=== PATIENT | male | born 1945 | race Caucasian/White ===

== ENCOUNTER 2021-01-06 15:31 | Emergency (ER) | payer OTHER | END 2021-01-06 18:38 | disposition home or self-care (01) | LOC: ER 15:31 | DX: J18.9 Pneumonia, unspecified organism (principal); N18.9 Chronic kidney disease, unspecified; I10 Essential (primary) hypertension; E11.9 Type 2 diabetes mellitus without complications; E03.9 Hypothyroidism, unspecified ==

== ENCOUNTER 2022-11-20 16:40 | Inpatient (IN) | payer OTHER ==
[~2022-11-20] VITALS: Ht 175.3 cm; Wt 90.7 kg
[~2022-11-20 16:40] MED LIST: AMOCLA875 PO; AZIT250 PO
[2022-11-20 18:31] LABS: Albumin, Blood 3.4 g/dL (3.4-5.0); Albumin/Globulin Ratio 0.9 (0.8-1.8); Bilirubin, Total 0.9 mg/dL (0.1-1.0); Bun/Creatinine Ratio 17.9 (12.0-20.0); Calcium, Blood 11.6 mg/dL (8.5-10.1); Creatinine, Blood 1.79 mg/dL (0.60-1.20); Globulin, Blood 3.9 g/dL (2.2-4.0); Potassium, Blood 4.2 mmol/L (3.5-5.5); Total Protein, Blood 7.3 g/dL (6.4-8.2)
[2022-11-20 18:43] LABS: BASOPHILS ABSOLUTE AUTO 0.07 K/mm3 (0.00-0.23); BASOPHILS PERCENT AUTO 1 % (0-2); EOSINOPHILS ABSOLUTE AUTO 0.16 K/mm3 (0.00-0.68); EOSINOPHILS PERCENT AUTO 1 % (0-6); Hematocrit 50.1 % (37.0-53.0); Hemoglobin 16.7 g/dL (13.5-17.5); IMMATURE GRAN ABSOLUTE AUTO 0.04 K/mm3 (0.00-0.10); IMMATURE GRAN PERCENT AUTO 0 % (0-1); LYMPHOCYTES ABSOLUTE AUTO 1.76 K/mm3 (0.84-5.20); LYMPHOCYTES PERCENT AUTO 14 % (21-46); MONOCYTES ABSOLUTE AUTO 1.21 K/mm3 (0.16-1.47); MONOCYTES PERCENT AUTO 10 % (4-13); Mean Corpuscular HGB 29.8 pg (26.0-34.0); Mean Corpuscular HGB Conc 33.3 g/dL (31.5-36.5); Mean Corpuscular Volume 89 fL (80-100); NEUTROPHILS ABSOLUTE AUTO 9.45 K/mm3 (1.96-9.15); NEUTROPHILS PERCENT AUTO 74 % (41-73); RDW Coefficient Variation 13.1 % (11.7-14.2); RDW Standard Deviation 42.7 fL (35.1-46.3); Red Blood Cell Count 5.61 M/mm3 (4.30-5.90); Thyroid Stimulating Hormone 6.88 uIU/mL (0.360-4.800); White Blood Cell Count 12.69 K/mm3 (4.00-11.30)
[2022-11-20 18:53] LABS: Mean Platelet Volume 9.7 fL (9.1-12.4); Platelet Count 266 K/mm3 (150-400)
[2022-11-20 19:55] LABS: Source, Urine Clean Catch
[2022-11-20 20:01] LABS: Bilirubin, Urine Neg (Neg); Blood, Urine 3+ (Neg); Glucose Qualitative, Urine Neg (Neg); Ketones, Urine 2+ (Neg); Leukocyte Esterase, Urine 3+ (Neg); Nitrite, Urine Pos (Neg); Protein, Urine 4+ (Neg); Urobilinogen, Urine NORM (Normal)
[2022-11-20 20:08] LABS: Appearance, Urine Cloudy (Clear); Color, Urine Yellow (P-Yellow)
[2022-11-20 20:09] LABS: Bacteria Many /hpf; Squamous Epithelial Cells Few /hpf (Few); White Blood Cells, Urine TNTC /hpf (0-5)
[2022-11-20 20:10] LABS: Amorphous Light (0-Heavy)
[2022-11-21] MEDS ORDERED: ACET500 PO (02:57)
[2022-11-21] MEDS ORDERED: Aspir 8181 MG PO (02:58)
[2022-11-21] MEDS ORDERED: ATOR40TA PO (02:58)
[2022-11-21] MEDS ORDERED: AMLO10 PO (02:58)
[2022-11-21] MEDS ORDERED: ALEN70 PO (02:58)
[2022-11-21] MEDS ORDERED: THERA-D2000 UNIT PO (02:59)
[2022-11-21] MEDS ORDERED: BASAGLAR K100 UNIT/1 SC (02:59)
[2022-11-21] MEDS ORDERED: TAMS.4ER PO (03:00)
[2022-11-21] MEDS ORDERED: LISI5 PO (03:00)
[2022-11-21] MEDS ORDERED: THYROID DESICCATED PO (03:01)
[2022-11-21 03:16] LABS: U Amphetamine Screen Not Detected; U Barbituate Screen Not Detected; U Benzodiazapine Screen Not Detected; U Buprenorphine Screen Not Detected; U Cannabinoids Screen Not Detected; U Cocaine Screen Not Detected; U Methadone Screen Not Detected; U Methamphetamine Screen Not Detected; U Opiates Screen Not Detected; U Oxycodone Screen Not Detected; U Phencyclidine Screen Not Detected; U Propoxyphene Screen Not Detected
--- NOTE | 2022-11-21 05:54 | NUR ---
REINFORCING METAL WORKER SUMMARY/NEW ADMIT PT A/OX TO SELF ONLY AT THE TIME OF ADMIT; THIS MORNING HE COULD TELL ME HE WAS IN THE HOSPITAL. PT DOES NOT KNOW WHY HE IS HERE. UNABLE TO USE CALL LIGHT OR MAKE NEEDS KNOWN. IMPULUSIVE ATTEMPTS OOB. URINARY FREQUENCY/URGENCY WITH LITTLE OUT PUT. BLADDER SCAN SHOWING 15MLS. HX OF BPH WITH OBSTRUCTION. PT STANDING AT BEDSIDE TO URNIATE WITH ASSISTANCE AND A URINAL. URINE SAMPLE SENT FOR TOXICOLOGY--RESULTS NEGATIVE. PT IN ROOM WITH VIDEO MONITORING.
[2022-11-21 06:14] LABS: BASOPHILS ABSOLUTE AUTO 0.07 K/mm3 (0.00-0.23); BASOPHILS PERCENT AUTO 1 % (0-2); EOSINOPHILS ABSOLUTE AUTO 0.23 K/mm3 (0.00-0.68); EOSINOPHILS PERCENT AUTO 2 % (0-6); Hematocrit 46.2 % (37.0-53.0); Hemoglobin 15.7 g/dL (13.5-17.5); IMMATURE GRAN ABSOLUTE AUTO 0.04 K/mm3 (0.00-0.10); IMMATURE GRAN PERCENT AUTO 0 % (0-1); LYMPHOCYTES ABSOLUTE AUTO 1.85 K/mm3 (0.84-5.20); LYMPHOCYTES PERCENT AUTO 15 % (21-46); MONOCYTES ABSOLUTE AUTO 1.18 K/mm3 (0.16-1.47); MONOCYTES PERCENT AUTO 10 % (4-13); Mean Corpuscular HGB 29.7 pg (26.0-34.0); Mean Corpuscular Volume 88 fL (80-100); Mean Platelet Volume 9.1 fL (9.1-12.4); NEUTROPHILS ABSOLUTE AUTO 9.03 K/mm3 (1.96-9.15); NEUTROPHILS PERCENT AUTO 73 % (41-73); Platelet Count 303 K/mm3 (150-400); RDW Coefficient Variation 13.2 % (11.7-14.2); RDW Standard Deviation 42.2 fL (35.1-46.3); Red Blood Cell Count 5.28 M/mm3 (4.30-5.90)
[2022-11-21 06:42] LABS: Free Thyroxine 0.8 ng/dL (0.70-1.60)
[2022-11-21 06:44] LABS: Triiodothyronine, Free 2.01 pg/mL (2.18-3.98)
[2022-11-21 06:45] LABS: Albumin/Globulin Ratio 0.9 (0.8-1.8); Bilirubin, Total 0.8 mg/dL (0.1-1.0); Bun/Creatinine Ratio 19.4 (12.0-20.0); Calcium, Blood 10.6 mg/dL (8.5-10.1); Creatinine, Blood 1.65 mg/dL (0.60-1.20); Globulin, Blood 3.5 g/dL (2.2-4.0); Potassium, Blood 4.2 mmol/L (3.5-5.5); Total Protein, Blood 6.5 g/dL (6.4-8.2)
[2022-11-21 07:33] VITALS: BP 157/68
[2022-11-21] MEDS ORDERED: CINA30 PO (11:20)
[2022-11-21] MEDS ORDERED: JARDIANCE25 MG PO (11:20)
[2022-11-21 15:37] VITALS: BP 136/69
--- NOTE | 2022-11-21 17:36 | NUR ---
SHIFT SUMMARY: NO ACUTE EVENTS. NO RESTRAINTS USED DURING THIS SHIFT. A&O X 2, KNOWS , RECOGNIZED , BUT REMAINS SLOW TO RESPOND AND A BIT CONFUSED. HAS VIRTUAL BUSINESS PROCESS ASSOCIATE IN PLACE. GOOD APPETITE. GETTING UP TO BR WITH 1 PERSON ASSIST AND FWW, GAIT UNSTEADY. PHYSICAL THERAPY DID EVAL TODAY. DENIED PAIN. STATED HE IS A CURRENT SMOKER BUT DECLINED OFFERED NICOTINE PATCH.
[2022-11-21 19:52] VITALS: BP 140/63
--- NOTE | 2022-11-21 20:15 | NUR ---
NURSE NOTE CALLED DR ZEPEDA ABOUT CBG 354. DR ZEPEDA WANTED TO NOT GIVE THE SLIDING SCALE AND TO GIVE THE NEW ORDER OF 35 LONG ACTING INSULIN. RECHECK CBG DURING NEXT VITAL CHECK
--- NOTE | 2022-11-22 03:58 | NUR ---
SHIFT SUMMARY PATIENT IS ALERT AND ORIENTED X3. PATIENT HAS BEEN PLEASENT AND COOPERATIVE ALL SHIFT. PATIENT HAS HAD NO ACUTE EVENTS THIS SHIFT. VITAL SIGNS REVIEWED. PATIENT HAS HAD LR INFUSING AT 125/HR THIS SHIFT. PATIENT HAS HAD FREQUENT SMALL URINATIONS USING URINAL WITH ASSISTANCE THIS SHIFT. PATIENT HAS NOT COMPLAINED OF PAIN, NAUSEA, SOB OR VOMITTING THIS SHIFT. BED IN LOCKED AND LOWEST POSITION. CALL LIGHT IN PLACE. CAMERA MONITORING IN PLACE. WILL MONITOR UNTIL SHIFT CHANGE.
[2022-11-22 04:32] LABS: BASOPHILS ABSOLUTE AUTO 0.05 K/mm3 (0.00-0.23); BASOPHILS PERCENT AUTO 1 % (0-2); EOSINOPHILS ABSOLUTE AUTO 0.42 K/mm3 (0.00-0.68); EOSINOPHILS PERCENT AUTO 5 % (0-6); Hematocrit 41.8 % (37.0-53.0); Hemoglobin 14.1 g/dL (13.5-17.5); IMMATURE GRAN ABSOLUTE AUTO 0.02 K/mm3 (0.00-0.10); IMMATURE GRAN PERCENT AUTO 0 % (0-1); LYMPHOCYTES ABSOLUTE AUTO 1.85 K/mm3 (0.84-5.20); LYMPHOCYTES PERCENT AUTO 20 % (21-46); MONOCYTES ABSOLUTE AUTO 1.15 K/mm3 (0.16-1.47); MONOCYTES PERCENT AUTO 13 % (4-13); Mean Corpuscular HGB 29.6 pg (26.0-34.0); Mean Corpuscular HGB Conc 33.7 g/dL (31.5-36.5); Mean Corpuscular Volume 88 fL (80-100); Mean Platelet Volume 9.6 fL (9.1-12.4); NEUTROPHILS ABSOLUTE AUTO 5.58 K/mm3 (1.96-9.15); NEUTROPHILS PERCENT AUTO 62 % (41-73); Platelet Count 284 K/mm3 (150-400); RDW Coefficient Variation 12.9 % (11.7-14.2); Red Blood Cell Count 4.77 M/mm3 (4.30-5.90); White Blood Cell Count 9.07 K/mm3 (4.00-11.30)
[2022-11-22 04:59] LABS: Bun/Creatinine Ratio 19.3 (12.0-20.0); Calcium, Blood 9.9 mg/dL (8.5-10.1); Creatinine, Blood 1.4 mg/dL (0.60-1.20); Potassium, Blood 3.7 mmol/L (3.5-5.5)
[2022-11-22 07:29] VITALS: BP 129/76
[2022-11-22 09:58] VITALS: BP 141/65
[2022-11-22] MEDS ORDERED: CEPH500 PO (12:50)
[2022-11-22] MEDS ORDERED: SENN187 PO (12:51)
[2022-11-22] MEDS ORDERED: HUMALOG JU100 UNIT/2 SC (12:51)
[2022-11-22] MEDS ORDERED: VISBIOME 112.51 EACH PO (12:52)
--- NOTE | 2022-11-22 13:50 | NUR ---
PT HAD AN EPISODE OF CONFUSION. UNABLE TO STATE , YEAR, LOCATION, SITUATION OR LAST NAME. EXPRESSED CONCERN TO RN COVERING MY BREAK. MD NOTIFIED AND CAME TO BEDSIDE. PT WAS MORE AWARE AND ABLE TO STATE NAME, , AND SITUATION. MD OK TO DISCHARGE
== END 2022-11-22 14:22 | disposition home health service (06) | DRG 690 ==
LOC: ER 16:40 → MEDS 16:42 → ENPENDDIS 11-22 13:17 → MEDS 11-22 14:22
PROVIDERS: Emergency Medicine; Family Medicine; ADMIT Student in an Organized Health Care Education/Training Program
DX: N39.0 Urinary tract infection, site not specified (principal); N17.9 Acute kidney failure, unspecified; G93.49 Other encephalopathy; E03.9 Hypothyroidism, unspecified; F32.9 Major depressive disorder, single episode, unspecified; B96.1 Klebsiella pneumoniae [K. pneumoniae] as the cause of diseases classified elsewhere; I12.9 Hypertensive chronic kidney disease with stage 1 through stage 4 chronic kidney disease, or unspecified chronic kidney disease; N18.30 Chronic kidney disease, stage 3 unspecified; M85.80 Other specified disorders of bone density and structure, unspecified site; E11.22 Type 2 diabetes mellitus with diabetic chronic kidney disease; N40.0 Benign prostatic hyperplasia without lower urinary tract symptoms; F17.210 Nicotine dependence, cigarettes, uncomplicated; Z90.5 Acquired absence of kidney; Z85.528 Personal history of other malignant neoplasm of kidney
CPT/HCPCS: 36415; 70450; 80048; 80053; 81001; 82947; 83735; 84439; 84443; 84481; 85025; 87077; 87086; 87186; 93005; 93010; 96361; 96365; 96372; 96376; 97116; 97162; 97166; 97530; 99285-25; A9270; G0378; J0696; J1650; J1815; J7030; J7120

== ENCOUNTER 2022-12-28 13:34 | Inpatient (IN) | payer OTHER ==
[~2022-12-28] VITALS: Ht 182.9 cm; Wt 88.0 kg
[~2022-12-28 13:34] MED LIST changes: +ACET500 PO; +ALEN70 PO; +AMLO10 PO; +ATOR40TA PO; +Aspir 8181 MG PO; +BASAGLAR K100 UNIT/1 SC; +CEPH500 PO; +CINA30 PO; +HUMALOG JU100 UNIT/2 SC; +JARDIANCE25 MG PO; +LISI5 PO; +SENN187 PO; +TAMS.4ER PO; +THERA-D2000 UNIT PO; +THYROID DESICCATED PO; +VISBIOME 112.51 EACH PO
[2022-12-28 14:51] LABS: Albumin/Globulin Ratio 0.7 (0.8-1.8); Bilirubin, Total 0.9 mg/dL (0.1-1.0); Bun/Creatinine Ratio 39.8 (12.0-20.0); Calcium, Blood 10.3 mg/dL (8.5-10.1); Creatinine, Blood 1.86 mg/dL (0.60-1.20); Globulin, Blood 4.3 g/dL (2.2-4.0); Potassium, Blood 4.3 mmol/L (3.5-5.5); Total Protein, Blood 7.3 g/dL (6.4-8.2)
[2022-12-28 15:06] LABS: BASOPHILS ABSOLUTE AUTO 0.07 K/mm3 (0.00-0.23); BASOPHILS PERCENT AUTO 1 % (0-2); EOSINOPHILS ABSOLUTE AUTO 0.37 K/mm3 (0.00-0.68); EOSINOPHILS PERCENT AUTO 3 % (0-6); Hematocrit 48.2 % (37.0-53.0); Hemoglobin 16.8 g/dL (13.5-17.5); IMMATURE GRAN ABSOLUTE AUTO 0.12 K/mm3 (0.00-0.10); IMMATURE GRAN PERCENT AUTO 1 % (0-1); LYMPHOCYTES ABSOLUTE AUTO 1.48 K/mm3 (0.84-5.20); LYMPHOCYTES PERCENT AUTO 12 % (21-46); MONOCYTES ABSOLUTE AUTO 1.19 K/mm3 (0.16-1.47); MONOCYTES PERCENT AUTO 10 % (4-13); Mean Corpuscular HGB 29.4 pg (26.0-34.0); Mean Corpuscular HGB Conc 34.9 g/dL (31.5-36.5); Mean Corpuscular Volume 84 fL (80-100); Mean Platelet Volume 9.8 fL (9.1-12.4); NEUTROPHILS ABSOLUTE AUTO 9.23 K/mm3 (1.96-9.15); NEUTROPHILS PERCENT AUTO 74 % (41-73); Platelet Count 377 K/mm3 (150-400); RDW Coefficient Variation 12.4 % (11.7-14.2); Red Blood Cell Count 5.72 M/mm3 (4.30-5.90); White Blood Cell Count 12.46 K/mm3 (4.00-11.30)
[2022-12-28 15:32] LABS: Source, Urine Voided
[2022-12-28 15:37] LABS: Appearance, Urine Clear (Clear); Bilirubin, Urine Neg (Neg); Blood, Urine Neg (Neg); Color, Urine Yellow (P-Yellow); Glucose Qualitative, Urine 4+ (Neg); Ketones, Urine Neg (Neg); Leukocyte Esterase, Urine Neg (Neg); Nitrite, Urine Neg (Neg); Protein, Urine 2+ (Neg); Urobilinogen, Urine NORM (Normal)
[2022-12-28 16:13] LABS: Base Excess Venous 2.7 mmol/L; Bicarbonate Venous 24.4 mmol/L (24.0-30.0); PCO2 Venous 56.9 mmHg (38-42); pH Blood Venous 7.31 (7.34-7.37)
[2022-12-28 16:23] LABS: White Blood Cells, Urine 0-2 /hpf (0-5)
[2022-12-28 16:24] LABS: Amorphous Light (0-Heavy); Bacteria Few /hpf; Squamous Epithelial Cells Few /hpf (Few)
[2022-12-28 19:15] VITALS: BP 117/67
--- NOTE | 2022-12-28 19:21 | NUR ---
TRANSFER- PT ARRIVED FROM ER AT 1908 IN STABLE CONDITION AFTER RECEIVING REPORT FROM GRAPHIC DESIGNER.
[2022-12-29 02:24] VITALS: BP 133/72
--- NOTE | 2022-12-29 05:42 | NUR ---
SUMMARY: PT A/OX3-4, IS PLEASANT AND COOPERATIVE W/CARE AND SPECIFIES NEEDS WHEN STAFF IN ROOM. HE'S INDEPENDENT AND SELF CARING AT BASELINE BUT ADMITS TO DIFFICULTY W/ADL'S RECENTLY R/T WEAKNESS AND "FEELING CRUMMY". HE'S UNAWARE OF SOME LIMITATIONS AT PRESENT W/TENDENCY TO OVERESTIMATE ABILITIES, BED ALARM ON FOR FALL RISK/SAFETY. HE ARRIVED W/POOR HYGIENE AND SOILED BRIEF FROM HOME SO PARTIAL BED BATH AND THOROUGH KARINE CARE ATTENDED TO. URGE INCONTINENCE NOTED AND PT STANDS AT EOB TO USE URINAL W/ASSIST FOR FREQ SM.VOIDS, PULLUPS CHANGED PRN. NS INFUSING AT 125 ML/HR FOR RAHUL ON CKD AND LACTIC ACID IMPROVED TO 1.4. TYLENOL RECIEVED FOR TOLERABLE RELIEF OF "ALL OVER" PAIN BUT HE CONT'D TO BE RESTLESS W/DIFFICULTY SLEEPING T/O NOCTE. HALDOL 2.5MG IV PRN PROVIDED BUT MINIMAL AFFECT WAS OBSERVED. NO ACUTE CHANGES, VSS/AFEBRILE. IGNITION RISK EDUCATION AND ASSESSMENT COMPLETED. WCTM AND REPORT TO DAY RN.
[2022-12-29 06:12] LABS: Hematocrit 44.4 % (37.0-53.0); Hemoglobin 15.4 g/dL (13.5-17.5); Mean Corpuscular HGB 29.3 pg (26.0-34.0); Mean Corpuscular HGB Conc 34.7 g/dL (31.5-36.5); Mean Corpuscular Volume 85 fL (80-100); Mean Platelet Volume 9.5 fL (9.1-12.4); Platelet Count 320 K/mm3 (150-400); RDW Coefficient Variation 12.5 % (11.7-14.2); Red Blood Cell Count 5.25 M/mm3 (4.30-5.90)
[2022-12-29 06:38] LABS: Bun/Creatinine Ratio 39.4 (12.0-20.0); Creatinine, Blood 1.42 mg/dL (0.60-1.20); Magnesium, Blood 1.6 mg/dL (1.6-2.4); Potassium, Blood 4.4 mmol/L (3.5-5.5)
[2022-12-29 07:08] VITALS: BP 112/64
--- NOTE | 2022-12-29 11:04 | NUR ---
RESTLESSNESS PT RESTLESS MOST THE MORNING. COMPLAINING HE CANT SLEEP. HALDOL GIVEN ONCE THIS AM WITH NO AFFECT. DR. LY NOTIFIED OF THIS.
[2022-12-29 15:48] VITALS: BP 147/53
--- NOTE | 2022-12-29 17:28 | NUR ---
SHIFT SUMMARY PT RESTLESS T/O SHIFT. DOES NOT STAY IN ONE PLACE FOR LONG. PT SHOWERED TODAY. SATING AROUND 93% T/O SHIFT. NS TURNED DOWN TO 75 ML/HR ORDERED. PT C/O HAVING DIFFICULTY SLEEPING. THIS WAS REPORTED TO DR. LY. WOBBLY ON FEET. 1P ASSIST WITH FWW. PT VERY IMPULSIVE HOWEVER AND DOES NOT USE HIS CALL LIGHT. BED/CHAIR ALARM IN USE. NO OTHER ACUTE CHANGES IN ASSESSMENT AT THIS TIME. NO IGINTION SOURCE FOUND IN ROOM. CALL LIGHT IN REACH. DENIES OTHER NEEDS AT THIS TIME.
[2022-12-29 19:37] VITALS: BP 124/83
--- NOTE | 2022-12-30 04:05 | NUR ---
SHIFT SUMMARY ADMITTED FOR RAHUL/CKD. FULL CODE. PLAN IS FOR DC W/HH. NS INFUSING ORDERED. HE IS IMPULSIVE. BED ALARM IN PLACE. HE IS REDIRECTABLE AND COOPERATIVE WITH CARE. 1 ASSIST W/GB & FWW-BRP. ADA DIET. ACHS CBG'S, MED SS. HE REFUSES TO WEAR A CPAP. CONTINUOUS PULSE OX IN PLACE. HE HAS NOT BEEN SLEEPING WELL THE PAST FEW NIGHTS PER REPORT. WE DID PROCURE HIM A RECLINER WHICH HE SEEMS VERY PLEASED WITH.
[2022-12-30 05:12] VITALS: BP 157/80
[2022-12-30 06:00] LABS: Bun/Creatinine Ratio 30.6 (12.0-20.0); Calcium, Blood 8.8 mg/dL (8.5-10.1); Creatinine, Blood 1.21 mg/dL (0.60-1.20); Potassium, Blood 4.2 mmol/L (3.5-5.5)
[2022-12-30 07:05] VITALS: BP 138/71
--- NOTE | 2022-12-30 15:10 | NUR ---
DISCHARGE LATE ENTRY PT DISCHARGED TO HOME HEALTH. SON AT BEDSIDE. DISCHARGE INSTRUCTIONS DISCUSSED WITH PT AND SON. EMPHASIZED IMPORTANCE OF NOT TAKING MEDICATIONS THAT HAVE BEEN DISCONTINUED BY HOSPITALIST AND KEEP [facility] ATTEMPTED TO SET UP PCP WITH [facility] HOWEVER NO OPEN APPOINTMENTS AVAILABLE. PT ALERT AND ORIENTED X3, FORGETFUL, ANXIOUS TO LEAVE. 1 PERSON ASSIST WITH FWW. PT IS UNSTEADY AND OVERESTIMATES HIS LIMITATONS.
== END 2022-12-30 13:50 | disposition home or self-care (01) | DRG 682 ==
LOC: ER 13:34 → MEDS 13:35
PROVIDERS: Emergency Medicine; Internal Medicine; Nurse Practitioner Acute Care; Student in an Organized Health Care Education/Training Program; ADMIT Internal Medicine
PROC: 5A09357 Assistance with Respiratory Ventilation, Less than 24 Consecutive Hours, Continuous Positive Airway Pressure (ICD-10-PCS; principal; 2022-12-29)
DX: N17.9 Acute kidney failure, unspecified (principal); G92.8 Other toxic encephalopathy; E87.21 Acute metabolic acidosis; E87.1 Hypo-osmolality and hyponatremia; Q60.0 Renal agenesis, unilateral; N13.8 Other obstructive and reflux uropathy; E86.0 Dehydration; N18.30 Chronic kidney disease, stage 3 unspecified; D72.829 Elevated white blood cell count, unspecified; G47.33 Obstructive sleep apnea (adult) (pediatric); N40.1 Benign prostatic hyperplasia with lower urinary tract symptoms; E03.9 Hypothyroidism, unspecified; M85.80 Other specified disorders of bone density and structure, unspecified site; E11.22 Type 2 diabetes mellitus with diabetic chronic kidney disease; F17.210 Nicotine dependence, cigarettes, uncomplicated; I95.9 Hypotension, unspecified; I12.9 Hypertensive chronic kidney disease with stage 1 through stage 4 chronic kidney disease, or unspecified chronic kidney disease; I44.7 Left bundle-branch block, unspecified; F32.9 Major depressive disorder, single episode, unspecified; Z79.899 Other long term (current) drug therapy; Z79.82 Long term (current) use of aspirin; Z79.02 Long term (current) use of antithrombotics/antiplatelets; Z79.4 Long term (current) use of insulin; Z79.811 Long term (current) use of aromatase inhibitors; Z79.2 Long term (current) use of antibiotics; Z90.5 Acquired absence of kidney; Z85.528 Personal history of other malignant neoplasm of kidney
CPT/HCPCS: 36415; 70450; 71046; 80048; 80053; 81001; 82330; 82803; 82947; 83605; 83735; 83880; 84443; 84484; 85025; 85027; 87040; 94762; 96361; 96372; 96374; 96376; 97116; 97161; 97165; 97530; 97535; 99285-25; A9270; G0378; J1630; J1644; J1815; J7030

== ENCOUNTER 2023-01-31 11:15 | Emergency (ER) | payer OTHER ==
[~2023-01-31] VITALS: Ht 177.8 cm; Wt 81.7 kg
[2023-01-31 11:34] VITALS: BP 135/71
[2023-01-31 12:17] LABS: BASOPHILS ABSOLUTE AUTO 0.06 K/mm3 (0.00-0.23); BASOPHILS PERCENT AUTO 1 % (0-2); EOSINOPHILS PERCENT AUTO 2 % (0-6); Hematocrit 39.9 % (37.0-53.0); Hemoglobin 13.5 g/dL (13.5-17.5); IMMATURE GRAN ABSOLUTE AUTO 0.03 K/mm3 (0.00-0.10); IMMATURE GRAN PERCENT AUTO 0 % (0-1); LYMPHOCYTES ABSOLUTE AUTO 1.34 K/mm3 (0.84-5.20); LYMPHOCYTES PERCENT AUTO 14 % (21-46); MONOCYTES ABSOLUTE AUTO 1.34 K/mm3 (0.16-1.47); MONOCYTES PERCENT AUTO 14 % (4-13); Mean Corpuscular HGB 30.1 pg (26.0-34.0); Mean Corpuscular HGB Conc 33.8 g/dL (31.5-36.5); Mean Corpuscular Volume 89 fL (80-100); Mean Platelet Volume 9.4 fL (9.1-12.4); NEUTROPHILS ABSOLUTE AUTO 6.82 K/mm3 (1.96-9.15); NEUTROPHILS PERCENT AUTO 70 % (41-73); Platelet Count 350 K/mm3 (150-400); RDW Standard Deviation 45.9 fL (35.1-46.3); Red Blood Cell Count 4.48 M/mm3 (4.30-5.90); White Blood Cell Count 9.79 K/mm3 (4.00-11.30)
[2023-01-31 12:27] LABS: Bun/Creatinine Ratio 30.2 (12.0-20.0); Calcium, Blood 10.7 mg/dL (8.5-10.1); Creatinine, Blood 1.62 mg/dL (0.60-1.20); Potassium, Blood 4.5 mmol/L (3.5-5.5)
[2023-01-31 12:35] LABS: Source, Urine Straight Cath
[2023-01-31 12:41] LABS: Appearance, Urine Clear (Clear); Bilirubin, Urine Neg (Neg); Blood, Urine 4+ (Neg); Color, Urine Yellow (P-Yellow); Glucose Qualitative, Urine 3+ (Neg); Ketones, Urine Neg (Neg); Leukocyte Esterase, Urine Neg (Neg); Nitrite, Urine Neg (Neg); Protein, Urine 4+ (Neg); Specific Gravity, Urine 1.025 (1.003-1.022); Urobilinogen, Urine NORM (Normal)
[2023-01-31 12:50] LABS: Amorphous Light (0-Heavy); Bacteria Rare /hpf; Squamous Epithelial Cells Few /hpf (Few); White Blood Cells, Urine 0-2 /hpf (0-5)
[2023-01-31] MEDS ORDERED: ALEN70 PO (12:51)
[2023-01-31] MEDS ORDERED: ALBU90OI INH (12:51)
[2023-01-31 12:52] LABS: Bicarbonate Venous 26.4 mmol/L (24.0-30.0); pH Blood Venous 7.38 (7.34-7.37)
[2023-01-31] MEDS ORDERED: NOVOLOG FL100 UNIT/3 SC (12:52)
== END 2023-01-31 14:15 | disposition home or self-care (01) ==
LOC: ER 11:15
PROVIDERS: Student in an Organized Health Care Education/Training Program
DX: R41.0 Disorientation, unspecified (principal); F03.90 Unspecified dementia, unspecified severity, without behavioral disturbance, psychotic disturbance, mood disturbance, and anxiety; G47.30 Sleep apnea, unspecified; I12.9 Hypertensive chronic kidney disease with stage 1 through stage 4 chronic kidney disease, or unspecified chronic kidney disease; N18.9 Chronic kidney disease, unspecified; E11.22 Type 2 diabetes mellitus with diabetic chronic kidney disease; E11.65 Type 2 diabetes mellitus with hyperglycemia; E03.9 Hypothyroidism, unspecified; Z79.899 Other long term (current) drug therapy; Z79.4 Long term (current) use of insulin; F17.210 Nicotine dependence, cigarettes, uncomplicated
CPT/HCPCS: 71045; 80048; 81001; 82803; 85025; 93005; 93010; J7030

== ENCOUNTER 2024-03-27 13:02 | Inpatient (IN) | payer OTHER ==
[~2024-03-27] VITALS: Ht 180.3 cm; Wt 78.1 kg
[~2024-03-27 13:02] MED LIST changes: +ALBU90OI INH; +NOVOLOG FL100 UNIT/3 SC
[2024-03-27 13:28] LABS: BASOPHILS ABSOLUTE AUTO 0.05 K/mm3 (0.00-0.23); BASOPHILS PERCENT AUTO 1 % (0-2); EOSINOPHILS ABSOLUTE AUTO 0.24 K/mm3 (0.00-0.68); EOSINOPHILS PERCENT AUTO 3 % (0-6); Hematocrit 37.6 % (37.0-53.0); Hemoglobin 12.8 g/dL (13.5-17.5); IMMATURE GRAN ABSOLUTE AUTO 0.06 K/mm3 (0.00-0.10); IMMATURE GRAN PERCENT AUTO 1 % (0-1); LYMPHOCYTES ABSOLUTE AUTO 1.35 K/mm3 (0.84-5.20); LYMPHOCYTES PERCENT AUTO 16 % (21-46); MONOCYTES PERCENT AUTO 9 % (4-13); Mean Corpuscular Volume 88 fL (80-100); Mean Platelet Volume 9.1 fL (9.1-12.4); NEUTROPHILS ABSOLUTE AUTO 6.17 K/mm3 (1.96-9.15); NEUTROPHILS PERCENT AUTO 71 % (41-73); Platelet Count 272 K/mm3 (150-400); RDW Coefficient Variation 14.2 % (11.7-14.2); RDW Standard Deviation 45.1 fL (35.1-46.3); Red Blood Cell Count 4.27 M/mm3 (4.30-5.90); White Blood Cell Count 8.67 K/mm3 (4.00-11.30)
[2024-03-27] MEDS ORDERED: CINA30 PO (14:52)
[2024-03-27] MEDS ORDERED: Crestor40 MG PO (14:53)
[2024-03-27] MEDS ORDERED: Furosemide40 MG PO (14:53)
[2024-03-27 14:54] LABS: Free Thyroxine 0.63 ng/dL (0.70-1.60); Magnesium, Blood 2.1 mg/dL (1.6-2.4)
[2024-03-27] MEDS ORDERED: Armour Thyroid90 MG PO (14:56)
[2024-03-27] MEDS ORDERED: SPIR25 PO (14:56)
[2024-03-27 14:57] LABS: Bun/Creatinine Ratio 20.1 (12.0-20.0); Calcium, Blood 10.6 mg/dL (8.5-10.1); Creatinine, Blood 1.34 mg/dL (0.60-1.20); Thyroid Stimulating Hormone 5.51 uIU/mL (0.360-4.800)
[2024-03-27] MEDS ORDERED: METO25 PO (14:57)
[2024-03-27] MEDS ORDERED: THERA-D2000 UNIT PO (14:58)
[2024-03-27] MEDS ORDERED: STIOLTO RESPIMAT4 G1 INH (14:59)
[2024-03-27] MEDS ORDERED: JARDIANCE10 MG PO (14:59)
[2024-03-27] MEDS ORDERED: LOSA25 PO (14:59)
[2024-03-27] MEDS ORDERED: LIDO700A20 TOP (15:00)
[2024-03-27] MEDS ORDERED: ELIQUIS5 M2 PO (15:00)
[2024-03-27] MEDS ORDERED: TAMS.4ER PO (15:00)
[2024-03-27] MEDS ORDERED: Atropine Sulfate 0.1 MG/ML 10ML SYR IV PRN (15:05)
[2024-03-27] MEDS ORDERED: Acetaminophen 325 MG TABLET PO PRN (15:05)
[2024-03-27] MEDS ORDERED: FLU VACC TS2024-25(6MOS UP)/PF 45 MCG/0.5 ML SYRINGE IM PRN (15:05)
[2024-03-27] MEDS ORDERED: Alendronate Sodium 70 MG Tablet PO SCH (15:20)
[2024-03-27] MEDS ORDERED: Albuterol HFA200 ACT/6.7 GM INH INH PRN (15:35)
[2024-03-27] MEDS ORDERED: Insulin Human Lispro 100 Units/ML 3ML Syringe SC SCH (16:30)
[2024-03-27 17:32] VITALS: BP 173/63
[2024-03-27 17:50] VITALS: BP 160/63
--- NOTE | 2024-03-27 17:56 | NUR ---
NURSING PCU ADMISSION/DAYSHIFT SUMMARY: Assumed care of pt at apprx 1655. Arrived from ER via gurney accompanied by RN, stand/pivot to unit bed. Confused and impulsive, follows most commands and has been pleasant w/staff. Skin fragile/dusky, no breakdown noted. General weakness, one staff assist to transfer. Denies dizziness/light headedness. Tele in place, Mobitz II w/HR 30-60's, SBP 170s though it took several attempts for result to register, no c/o CP/pressure, no noted edema. L/S with exp wheeze in upper/mid lobes, bibasilar crackles, denies dyspnea, occ moist cough, O2 sat mid 90's on RA. Abd SNT, BT+, urine yellow/clear, voids small ammounts frequently. PIV x2, s/l. No s/s of acute distress. Bed alarm set for safety purposes. Pt has attempted to get OOB frequently though has been able to be redirected and has remained pleasant. Zoll at bedside, call light in reach, monitor for changes.
[2024-03-27 20:04] VITALS: BP 142/53
[2024-03-27] MEDS ORDERED: Apixaban 5 MG Tab PO SCH (21:00)
[2024-03-27] MEDS ORDERED: Cholecalciferol 1000 Unit Tablet (=25MCG) PO SCH (21:00)
[2024-03-27] MEDS ORDERED: Insulin Glargine-Yfgn 100 Unit/mL 3 ML SYR SC SCH (21:00)
[2024-03-27 23:49] VITALS: BP 140/55
[2024-03-28 04:27] VITALS: BP 131/53
[2024-03-28 04:30] LABS: Hematocrit 36.3 % (37.0-53.0); Hemoglobin 12.3 g/dL (13.5-17.5); Mean Corpuscular HGB 29.7 pg (26.0-34.0); Mean Corpuscular HGB Conc 33.9 g/dL (31.5-36.5); Mean Corpuscular Volume 88 fL (80-100); Mean Platelet Volume 9.3 fL (9.1-12.4); Platelet Count 272 K/mm3 (150-400); RDW Coefficient Variation 14.2 % (11.7-14.2); RDW Standard Deviation 44.9 fL (35.1-46.3); Red Blood Cell Count 4.14 M/mm3 (4.30-5.90); White Blood Cell Count 8.31 K/mm3 (4.00-11.30)
--- NOTE | 2024-03-28 04:38 | NUR ---
SHIFT SUMMARY ASSUMED CARE OF PT AT 1900. PT A&O3 AT THE START OF SHIFT WITH CONFUSION TO SITUATION; PT UNSURE WHY HE WAS ADMITTED. T/O THE NIGHT, PT BECAME CONFUSED TO TIME AND PLACE. PT ATTEMPTED TO WALK TO RR BY HIMSELF BUT GAIT UNSTEADY AND PT REPORTS BEING DIZZY AT TIMES. PT REDIRECTABLE, BED IN LOWEST POSITION AND BED ALARM ON. LOWEST HR REPORTED BY RISK CONTROL REPRESENTATIVE WAS 48. ORTHOSTATIC VS COMPLETED.
[2024-03-28 04:56] LABS: Bun/Creatinine Ratio 22.7 (12.0-20.0); Calcium, Blood 10.4 mg/dL (8.5-10.1); Creatinine, Blood 1.32 mg/dL (0.60-1.20); Potassium, Blood 4.6 mmol/L (3.5-5.5)
[2024-03-28] MEDS ORDERED: Thyroid 60 MG Tab PO SCH (06:00)
[2024-03-28] MEDS ORDERED: Lidocaine 4% 1 Patch TOP SCH (09:00)
[2024-03-28] MEDS ORDERED: Furosemide 40 MG Tab PO SCH (09:00)
[2024-03-28] MEDS ORDERED: Empagliflozin 10 MG TAB PO SCH (09:00)
[2024-03-28] MEDS ORDERED: Tamsulosin HCl 0.4 MG Cap PO SCH (09:00)
[2024-03-28] MEDS ORDERED: Losartan Potassium 25 MG Tab PO SCH (09:00)
[2024-03-28] MEDS ORDERED: Cinacalcet HCL 30 MG Tab PO SCH (09:00)
[2024-03-28] MEDS ORDERED: Spironolactone 25 MG Tab PO SCH (09:00)
[2024-03-28] MEDS ORDERED: Rosuvastatin Calcium 10 MG Tab PO SCH (09:00)
[2024-03-28] MEDS ORDERED: NS 500 ML IV ONE (11:00)
--- NOTE | 2024-03-28 11:14 | NUR ---
"Spiritual Care Visit | Pt. Request Pt. is awake and welcomes my visit. Facilitaed a life review and the Pt. verbalized that his father has once owned the property that is [place] and that is why [facility] has its name. Other than that Pt. displayed evidence of some confusion but welcomed prayer. Prayed with Pt. Will remain available to the pt."
[2024-03-28 11:57] VITALS: BP 138/65
[2024-03-28 15:43] VITALS: BP 133/67
--- NOTE | 2024-03-28 19:31 | NUR ---
SHIFT SUMMARY: NEURO: PT A&OX4. CALLS APPROPRIATELY WHEN HE NEEDS TO USE THE BATHROOM. FOLLOW COMMANDS AND MAKES NEEDS KNOWN TO STAFF. PT APPEARS TO BE LESS CONFUSED AND USING CALL LIGHT MORE THIS AFTERNOON COMPARED TO THIS AM. CARDIAC: PT CONTINUES TO BE ANT IN THE 50'S. DENIES ANY CP, PRESSURE, TIGHTNESS OR SOB. BP MEDS AND LASIX WERE HELD THIS AM PER PROVIDER ORDERS DUE TO BRADYCARDIA ADN ORTHOSTATIC HYPOTENSION. BP STABLE THROUGHOUT SHIFT. RESP: WNL. EQUAL NONLABORED RESPPIRATIONS. DENIES ANY SOB. MAINTAINING O2 SAT OVER 95%. GI/: PT USING THE BATHROOM WITH SBA. DENIES ANY PAIN OR BURNING WITH URINATION. SKIN: WNL LINES: 20G RWR, 20G RFA. BOTH PATENT. CARDIOLOGY CAME TO SEE PT AND TALKED ABOUT THE POSSIBILITY OF NEEDING A PACEMAKER. PT WAS ANT TOUCHING IN THE 30'S THIS MORNING BUT HAS BEEN TRENDING IN THE 50'S MOST OF THE DAY. NO SIGNIFICANT EVENTS OR CHANGES HAPPENED DURING THIS SHIFT. REPORT TO BUTCHER MEAT RN TO ASSUME CARE OF PT.
[2024-03-28 20:21] VITALS: BP 137/54
[2024-03-28 23:49] VITALS: BP 129/57
[2024-03-29 04:46] VITALS: BP 130/57
[2024-03-29] MEDS ORDERED: Thyroid 60 MG Tab PO SCH (06:00)
--- NOTE | 2024-03-29 06:13 | NUR ---
SHIFT SUMMARY ASSUMED CARE OF PT AT 1900. PT A&O3 WITH CONFUSION TO TIME, COOPERATIVE IN CARE AND NOW CALLS WHEN NEEDING TO GO TO THE RR. VSS AND PT REMAINED ON RA, ABLE TO EXPRESS NEEDS AND DENIES ANY PAIN. COMPRESSION STOCKINGS PLACED AND TOLERATED BY PT. TRIMMER LOADER REPORTED PT IN 2ND DEGREE AV BLACK TYPE 2 WITH A 2.3 SEC PAUSE AT APPROX 0100 AND AGAIN AT 0130. PT ASLEEP BOTH TIMES. PT A&O AT BASELINE AND VSS. PT BED IN LOWEST POSITION, CALL LIGHT WITHIN REACH AND BED ALARM ON.
[2024-03-29 07:16] VITALS: BP 127/67
[2024-03-29] MEDS ORDERED: NS 1,000 ML IV SCH ×2 (09:00→15:00)
[2024-03-29 11:52] VITALS: BP 153/71
[2024-03-29 13:21] LABS: LYME VLSE1/PEPC10 ABS, ELISA 0.41 IV (<=0.90)
[2024-03-29] MEDS ORDERED: Fludrocortisone Acetate 0.1 MG Tab PO SCH (15:00)
[2024-03-29 15:25] VITALS: BP 128/71
--- NOTE | 2024-03-29 19:29 | NUR ---
SHIFT SUMMARY NEURO: PT A&OX4. FOLLOWS COMMANDS AND MAKES NEEDS KNOWN TO STAFF. NO ACUTE NEURO CHANGES THIS SHIFT. CARDIAC: PT CONTINUES TO HAVE ORTHOSTATIC VS THROUGHOUT THE DAY. HR HAS BEEN IN THE 60'S THROUGHOUT THE DAY. DENIES ANY C/P, TIGHTNESS, PRESSURE OR SOB. JUST REPORTS THAT HE IS TIRED. PT CONTINUES ON TELE. RESP: WNL. ON RA. MAINTAINING O2 SATS ABOUT 95%. DENIES ANY SOB. GI/: PT HAS BEEN AMBULATING TO THE BATHROOM WITH SBA. ADEQUATE URINARY OUTPUT. PT WAS GOING TO DC TO HOME TODAY BUT HIS ORTHOSTATIC VITAL SIGNS DID NOT IMPROVE AFTER IV FLUIDS. ASSEMBLER AND TESTER ELECTRONICS TALKED TO PT AND ABOUT THE NEED FOR A PACEMAKER AND WOULD A REPEAT EKG DAILY. NO OTHER SIGNIFICANT EVENTS OR CHANGES HAPPENED THIS SHIFT. REPORT TO WILLIAM HUYNH TO ASSUME CARE OF PT.
[2024-03-29 20:04] VITALS: BP 150/74
[2024-03-29] MEDS ORDERED: Insulin Glargine-Yfgn 100 Unit/mL 3 ML SYR SC SCH (21:00)
[2024-03-30 00:23] VITALS: BP 133/73
[2024-03-30 03:58] VITALS: BP 129/60
--- NOTE | 2024-03-30 05:28 | NUR ---
SHIFT SUMMARY ASSUMED CARE OF PT AT 1900. PT IS A/OX4. HEART SOUNDS ERGULAR. LUNG SOUNDS HAVE CRACKLES AT BASES. PT REMAINED ON RA T/O THE NOC. NO ACUTE EVENTS, PT WAS RESTLESS T/O THE NOC. PT DID NOT REST UNTIL 0430 THIS AM, PT HEART RATE WAS TOUCHING 39 WHILE AT REST. PT ASKED FOR SNACKS T/O THE NOC AND WANTED TO WALK ABOUT HIS ROOM.
[2024-03-30 09:19] LABS: Bun/Creatinine Ratio 21.2 (12.0-20.0); Calcium, Blood 10.2 mg/dL (8.5-10.1); Creatinine, Blood 1.37 mg/dL (0.60-1.20); Potassium, Blood 4.5 mmol/L (3.5-5.5)
--- NOTE | 2024-03-30 11:01 | NUR ---
UPDATE: MANAGER OF SALES AT BEDSIDE. PLAN FOR PACEMAKER PLACEMENT 04/02/24.
[2024-03-30 11:57] VITALS: BP 140/80
[2024-03-30] MEDS ORDERED: Midodrine 5 MG Tab PO SCH (12:00)
[2024-03-30 15:19] VITALS: BP 149/67
--- NOTE | 2024-03-30 16:53 | NUR ---
SHIFT SUMMARY: PT ALERT AND ORIENTED X3-4, ABLE TO FOLLOW COMMANDS AND MAKE NEEDS KNOWN. FORGETFUL AT TIMES. BED ALARM ON FOR SAFETY. POOR HISTORIAN. BP STABLE. HR SB-SR 50'S-60'S. DENIES CP/PRESSURE. AFEBRILE. SPO2 >96% ON ROOM AIR. RESPIRATIONS EVEN AND UNLABORED. PULSES STRONG AND EQUAL THROUGHOUT. ABD SOFT, NON TENDER, BOWEL SOUNDS +. FRONTEND ENGINEER IN THIS AM, PLAN FOR PACEMAKER Tuesday04/02/24. PT SBA TO AND FROM BATHROOM. ABLE TO USE IND AT BEDSIDE. CALL PLACED TO PT SPOUSE THIS AM, UPDATED ON PT PLAN OF CARE. BED IN LOW, CALL LIGHT IN REACH, WILL REPORT TO ONCOMING RN
[2024-03-30 20:28] VITALS: BP 146/91
[2024-03-30 23:17] VITALS: BP 144/59
--- NOTE | 2024-03-31 01:21 | NUR ---
SHIFT SUMMARY NEURO: A/OX3. DOESN'T KNOW WHY THEY ARE IN THE HOSPITAL. FORGETFUL, IMPULSIVE, EASILY REDIRECTABLE. CARDIAC: 1ST DEGREE HB WITH PROLONGED QT INTERVAL. OH:0.35. QT:0.42. ZOLL REMAINS AT BEDSIDE. LUNGS: ON RA, INSPIRATORY CRACKLES ON BASES. GI/:LAST BOWEL MOVEMENT CHARTED 03/27. NO PRN'S AVAILABLE. COLACE GIVEN. AMBULATING TO BATHROOM WITH STAND BY ASSIST. SKIN: THIGH HIGH KARINA HOSE REMOVED. FLAKY BROWN SKIN PRESENT ON TOES AND BLE.
[2024-03-31 03:23] VITALS: BP 145/97
[2024-03-31 05:35] LABS: Hemoglobin 12.3 g/dL (13.5-17.5); Mean Corpuscular HGB Conc 34.2 g/dL (31.5-36.5); Mean Corpuscular Volume 88 fL (80-100); Mean Platelet Volume 9.7 fL (9.1-12.4); Platelet Count 266 K/mm3 (150-400); RDW Standard Deviation 44.2 fL (35.1-46.3); White Blood Cell Count 7.93 K/mm3 (4.00-11.30)
[2024-03-31 06:28] LABS: Albumin, Blood 2.8 g/dL (3.4-5.0); Anion Gap 11 mmol/L (3-11); Blood Urea Nitrogen 34 mg/dL (8-24); Bun/Creatinine Ratio 21.4 (12.0-20.0); CO2, Blood 24 mmol/L (21-32); Calcium, Blood 10.2 mg/dL (8.5-10.1); Chloride, Blood 108 mmol/L (98-108); Creatinine, Blood 1.59 mg/dL (0.60-1.20); Glomerular Filtration Rate 45 (60-); Glucose, Blood 87 mg/dL (70-99); Phosphorus, Blood 3.5 mg/dL (2.5-4.9); Sodium, Blood 139 mmol/L (136-145)
[2024-03-31 07:46] VITALS: BP 161/55
[2024-03-31 11:20] VITALS: BP 131/58
--- NOTE | 2024-03-31 15:02 | NUR ---
PHYSICIAN CONTACT: ORTHOSTATIC VITAL SIGNS COMPLETED THIS AFTERNOON. LYING 126/61, SITTING 127/65, STANDING 110/65. PT ENDORSED MILD DIZZINESS W/ STANDING. MD ZEPEDA UPDATED, ORDER RECEIVED TO Willi RUBIN.
[2024-03-31 15:53] VITALS: BP 135/67
--- NOTE | 2024-03-31 17:52 | NUR ---
END OF SHIFT NOTE: SEE OTHER NOTES REGARDING UPDATES. NO ACUTE EVENTS THIS SHIFT. PT ALERT, ORIENTED X4. ABLE TO USE CALL LIGHT APPROPRIATELY & COMMUNICATE NEEDS W/ STAFF. BED ALARM ON FOR PT SAFETY DUE TO OCCASIONAL IMPULSIVITY. HR 50-70'S, SINUS-SINUS ANT W/ 1ST DEGREE HB & BBB. SBP 130-160'S, SEE PREVIOUS NOTE FOR ORTHOSTATIC VITALS. DENIES CHEST PAIN/PRESSURE, ENDORSES OCCASIONAL DIZZINESS W/ STANDING. SPO2 >90% ON RA, RESPIRATIONS EVEN & UNLABORED. ABLE TO AMBULATE W/ SBA TO RESTROOM TO VOID. YELLOW URINE OUTPUT, 1 FORMED BM. TOLERATING PO INTAKE WELL. CBG NOTED TO BE 78 THIS AM, AWARE. REPOSITIONING INDEPENDENTLY IN BED. NO OTHER NEEDS AT THIS TIME, PT RESTING IN BED WATCHING TV. CALL LIGHT IN REACH.
[2024-03-31] MEDS ORDERED: Midodrine 2.5 MG Tab PO SCH (18:00)
[2024-03-31] MEDS ORDERED: Melatonin 5 MG Tablet PO PRN (21:05)
[2024-03-31 21:28] VITALS: BP 140/52
[2024-03-31 23:25] VITALS: BP 157/87
[2024-04-01] VITALS (7 sets, daily range): BP systolic 95–151; BP diastolic 63–94
[2024-04-01 04:28] LABS: Hematocrit 36.3 % (37.0-53.0); Hemoglobin 12.3 g/dL (13.5-17.5); Mean Corpuscular HGB 29.7 pg (26.0-34.0); Mean Corpuscular HGB Conc 33.9 g/dL (31.5-36.5); Mean Corpuscular Volume 88 fL (80-100); Mean Platelet Volume 9.5 fL (9.1-12.4); Platelet Count 271 K/mm3 (150-400); RDW Coefficient Variation 14.1 % (11.7-14.2); RDW Standard Deviation 44.9 fL (35.1-46.3); Red Blood Cell Count 4.14 M/mm3 (4.30-5.90); White Blood Cell Count 7.54 K/mm3 (4.00-11.30)
[2024-04-01 05:05] LABS: Albumin, Blood 2.9 g/dL (3.4-5.0); Albumin/Globulin Ratio 0.9 (0.8-1.8); Bilirubin, Total 0.4 mg/dL (0.1-1.0); Bun/Creatinine Ratio 23.7 (12.0-20.0); Calcium, Blood 9.9 mg/dL (8.5-10.1); Creatinine, Blood 1.39 mg/dL (0.60-1.20); Globulin, Blood 3.3 g/dL (2.2-4.0); Potassium, Blood 3.9 mmol/L (3.5-5.5); Total Protein, Blood 6.2 g/dL (6.4-8.2)
--- NOTE | 2024-04-01 06:04 | NUR ---
SHIFT SUMMARY PT SLEPT WELL TONIGHT, NO ACUTE EVENTS OR CHANGES.
[2024-04-01] MEDS ORDERED: AmLODIPine Besylate 5 MG Tab PO SCH (09:00)
--- NOTE | 2024-04-01 12:33 | NUR ---
ORTHOSTATIC VITALS: ORTHOSTATIC VITAL SIGNS COMPLETED. BP LYING 123/57; BP SITTING 113/67; BP STANDING 110/48. MD ZEPEDA NOTIFIED OF RESULTS.
--- NOTE | 2024-04-01 17:23 | NUR ---
END OF SHIFT NOTE: NO ACUTE EVENTS THIS SHIFT. PT A/OX4, CALLS APPROPRIATELY & COMMUNICATES NEEDS W/ STAFF. HR 50-70'S, SINUS/SB ON TELE. SBP 130-150'S, SEE PREVIOUS NOTE FOR ORTHOSTATIC VITALS. DENIES CHEST PAIN/PRESSURE WELL DIZZINESS WHEN STANDING. SPO2 >90% ON ROOM AIR, RESPIRATIONS EVEN & UNLABORED. UP TO BATHROOM W/ SBA, 550ML URINE OUTPUT OF TIME OF THIS NOTE. NO BM'S. ABLE TO TAKE SHOWER TODAY W/ STAFF ASSIST. TOLERATING PO INTAKE WELL, PLANS FOR NPO AT 0000 FOR PACER PLACEMENT TOMORROW AM. NO OTHER NEEDS AT THIS TIME. PT LAYING IN BED EATING A SNACK, CALL LIGHT IN REACH.
[2024-04-02] VITALS (14 sets, daily range): BP systolic 130–175; BP diastolic 59–91
[2024-04-02 05:01] LABS: BASOPHILS ABSOLUTE AUTO 0.04 K/mm3 (0.00-0.23); BASOPHILS PERCENT AUTO 1 % (0-2); EOSINOPHILS ABSOLUTE AUTO 0.32 K/mm3 (0.00-0.68); EOSINOPHILS PERCENT AUTO 4 % (0-6); Hematocrit 35.8 % (37.0-53.0); IMMATURE GRAN ABSOLUTE AUTO 0.03 K/mm3 (0.00-0.10); IMMATURE GRAN PERCENT AUTO 0 % (0-1); LYMPHOCYTES PERCENT AUTO 16 % (21-46); MONOCYTES ABSOLUTE AUTO 1.18 K/mm3 (0.16-1.47); MONOCYTES PERCENT AUTO 14 % (4-13); Mean Corpuscular HGB 29.9 pg (26.0-34.0); Mean Corpuscular HGB Conc 33.5 g/dL (31.5-36.5); Mean Corpuscular Volume 89 fL (80-100); Mean Platelet Volume 9.5 fL (9.1-12.4); NEUTROPHILS ABSOLUTE AUTO 5.53 K/mm3 (1.96-9.15); NEUTROPHILS PERCENT AUTO 66 % (41-73); Platelet Count 267 K/mm3 (150-400); RDW Coefficient Variation 14.3 % (11.7-14.2); RDW Standard Deviation 45.9 fL (35.1-46.3); Red Blood Cell Count 4.01 M/mm3 (4.30-5.90)
[2024-04-02 05:18] LABS: Bun/Creatinine Ratio 27.8 (12.0-20.0); Calcium, Blood 9.7 mg/dL (8.5-10.1); Creatinine, Blood 1.44 mg/dL (0.60-1.20)
--- NOTE | 2024-04-02 06:08 | NUR ---
SHIFT SUMMARY PT HAS REMAINED NPO SINCE MIDNIGHT. 2300 SANDWHICH GIVEN. PT SLEPT WELL. NO OTHER CHANGES TO REPORT. ZOLL REMAINS AT THE BEDSIDE.
[2024-04-02] MEDS ORDERED: NS 1,000 ML IV SCH (07:35)
[2024-04-02] MEDS ORDERED: CeFAZolin Sodium 2,000 MG in NS 100 ML IV SCH ×2 (07:50→18:00)
[2024-04-02] MEDS ORDERED: Heparin Sodium 1000 Units/ML 10ML MDV ONE (09:07)
[2024-04-02] MEDS ORDERED: Bupivacaine 0.5% HCl 5 MG/ML 30MLVIAL ONE ×2 (09:07→09:24)
[2024-04-02] MEDS ORDERED: NS 1,000 ML IV ONE ×2 (09:07→09:50)
[2024-04-02] MEDS ORDERED: CeFAZolin Sodium 1000 mg Vial ONE (09:07)
--- NOTE | 2024-04-02 09:36 | NUR ---
UPDATE PT TAKEN TO STAPLE PROCESSING MACHINE OPERATOR FOR PROCEDURE. WILL AWAIT RETURN
[2024-04-02] MEDS ORDERED: Midazolam HCl 1MG / ML 2ML Vial ONE ×2 (09:49→10:25)
[2024-04-02] MEDS ORDERED: FentaNYL Citrate 50 MCG/ML 2 ML Injection ONE ×2 (09:50→10:25)
[2024-04-02] MEDS ORDERED: CeFAZolin Sodium 2,000 MG VIAL ONE (09:52)
[2024-04-02] MEDS ORDERED: NS 100 ML IV ONE (09:52)
[2024-04-02] MEDS ORDERED: OxyCODONE HCL 5 MG TAB PO PRN (11:35)
[2024-04-02] MEDS ORDERED: HYDROcodone 10-APAP 325 TAB PO PRN (11:35)
--- NOTE | 2024-04-02 12:00 | NUR ---
UPDATE PT RETURNED FROM [facility] POST PACEMAKER. PT AWAKE AND ALERT. VS STABLE. INCISION SITE TO LEFT CHEST WALL WITH DERMABOND IN PLACE. NO BLEEDING, BRUISING OR HEMATOMA NOTED. LEFT ARM IN SLING. PT EDUCATED ON RESTRICTIONS TO LEFT ARM AND POST-PACEMAKERT IMPLANT INSTRUCTION SHEET PROVIDED TO PATIENT AND SPOUSE. WILL CONTINUE PLAN OF CARE
[2024-04-02] MEDS ORDERED: Mag Sulfate 1 GM/D5% 100ML 100 ML IV STA (14:51)
--- NOTE | 2024-04-02 18:29 | NUR ---
SHIFT SUMMARY ASSUMED CARE AT 0700 AND RECEIVED REPORT FROM BIOINFORMATICS TECHNICIAN NURSE. PT WAS ALERT AND ORIENTED FOR THIS NURSE FOR THE ENTIRETY OF THE SHIFT. REMAINED NPO WITH THE EXCEPTION OF MORNING MEDS UNTIL DUAL CHAMBER PACEMAKER IMPLANTATION THIS MORNING. PT TOLERATED THE PROCEDURE WELL. SITE IS CLEAN. NO BRUISING, BLEEDING, OR HEMATOMA NOTED. HR IN THE 70S. PT REPORTED CHEST PAIN AT THE INCISION SITE AT A 8/10 AND WAS TREATED PER MAR. PT DID HAVE SOME HTN AFTER THE PROCEDURE WITH BPS IN THE 160S, BUT HAS SINCE RESOLVED.
--- NOTE | 2024-04-02 20:51 | NUR ---
ASSUMED CARE PT IS A&O X4; SPO2 >92% ON RA; MAP >65; RATE >60'S. PT DENIES CP (EXCEPT FOR MILD PAIN IN THE INCISION SITE), SOB, AND NAUSEA. PT ALSO DENIES DIZZINESS WHEN AMBULATING AT THIS TIME. THIGH HIGH COMPRESSION SOCKS ON AT THIS TIME. INCISION SITE FREE OF OOZING AND HEMATOMA W/ MILD REDNESS NOTED. SLING IN PLACE.
--- NOTE | 2024-04-02 23:32 | NUR ---
UPDATE PT NOW A&O X2-3; COOPERATIVE W/ CARE.
[2024-04-03 03:48] VITALS: BP 136/69
[2024-04-03 04:31] LABS: Hematocrit 37.2 % (37.0-53.0); Hemoglobin 12.4 g/dL (13.5-17.5); Mean Corpuscular HGB Conc 33.3 g/dL (31.5-36.5); Mean Corpuscular Volume 90 fL (80-100); Mean Platelet Volume 9.3 fL (9.1-12.4); Platelet Count 263 K/mm3 (150-400); RDW Coefficient Variation 14.4 % (11.7-14.2); RDW Standard Deviation 47.5 fL (35.1-46.3); Red Blood Cell Count 4.14 M/mm3 (4.30-5.90)
[2024-04-03 04:56] LABS: Albumin, Blood 2.8 g/dL (3.4-5.0); Anion Gap 9 mmol/L (3-11); Blood Urea Nitrogen 34 mg/dL (8-24); Bun/Creatinine Ratio 20.4 (12.0-20.0); CO2, Blood 27 mmol/L (21-32); Calcium, Blood 9.1 mg/dL (8.5-10.1); Chloride, Blood 105 mmol/L (98-108); Creatinine, Blood 1.67 mg/dL (0.60-1.20); Glomerular Filtration Rate 42 (60-); Glucose, Blood 182 mg/dL (70-99); Magnesium, Blood 1.9 mg/dL (1.6-2.4); Phosphorus, Blood 3.3 mg/dL (2.5-4.9); Potassium, Blood 4.4 mmol/L (3.5-5.5); Sodium, Blood 137 mmol/L (136-145)
--- NOTE | 2024-04-03 06:25 | NUR ---
SHIFT SUMMARY NO ACUTE EVENTS OVERNIGHT. INCISION SITE REMAINS UNCHANGED, PT CONTINUES TO BE A&O X4; SPO2 >92% ON RA; MAP >65. PT CONTINUES TO DENY CHEST PAIN W/ INCISION SITE PAIN MANAGED WELL PER EMAR AND REST.
[2024-04-03 07:30] VITALS: BP 145/64
--- NOTE | 2024-04-03 08:00 | NUR ---
ASSUMPTION OF CARE THIS RN ASSUMED CARE OF PT AT 0700 THIS AM AFTER BEDSIDE SHIFT REPORT FROM NOC RN. UPON INITIAL ASSESSMENT, PT RESTING IN BED, ALERT & ORIENTED, PLEASANT, COOPERATIVE. GREIGE MENDER CAME TO BEDSIDE TO SPEAK WITH PT THIS AM, CONCERNED FOR LEAD DISLODGEMENT. PPM INTERROGATED AT BEDSIDE BY REP Marycruz CARRION. CONFIRMED THAT ATRIAL LEAD WAS DISLOGED. GREIGE MENDER DISCUSSED THIS WITH PT AT BEDSIDE. PLAN FOR REVISION LATER THIS AM. PT IS SHOWING NO S/S OF DISTRESS OR DISCOMFORT AT THIS TIME. ABLE TO APPROPRIATELY EXPRESS NEEDS.
--- NOTE | 2024-04-03 08:35 | NUR ---
PER PPM INTERROGATION, ATRIAL LEAD IS DISLODGED AND MUST BE REVISED. C.O.D. AUDIT CLERK NOTIFIED AND FOLLOWING UP.
[2024-04-03] MEDS ORDERED: Bupivacaine 0.5% HCl 5 MG/ML 30MLVIAL ONE (10:46)
[2024-04-03] MEDS ORDERED: CeFAZolin Sodium 1000 mg Vial ONE (10:46)
[2024-04-03] MEDS ORDERED: NS 1,000 ML IV ONE ×2 (10:46→11:00)
[2024-04-03] MEDS ORDERED: Heparin Sodium 1000 Units/ML 10ML MDV ONE (10:46)
[2024-04-03] MEDS ORDERED: CeFAZolin Sodium 2,000 MG VIAL ONE (10:59)
[2024-04-03] MEDS ORDERED: Midazolam HCl 1MG / ML 2ML Vial ONE ×2 (10:59→11:35)
[2024-04-03] MEDS ORDERED: FentaNYL Citrate 50 MCG/ML 2 ML Injection ONE (10:59)
[2024-04-03] MEDS ORDERED: NS 100 ML IV ONE (11:00)
[2024-04-03 12:53] VITALS: BP 135/86
--- NOTE | 2024-04-03 13:05 | NUR ---
PT HAS RETURNED FROM CHIEF FISHERY DIVISION. DROWSY BUT EASY TO AROUSE. ORIENTED TO SITUATION AT THIS TIME AND RESPONDING APPROPRIATELY. VITALLY STABLE. BP PACER PACING AT A RATE OF 60 BPM, ATRIAL AND VENTRICULAR PACER SPIKES OBSERVED. WARM COMPRESS APPLIED TO INFILTRATED IV SITE. IV WAS REMOVED EARLIER THIS AM.
[2024-04-03 16:00] VITALS: BP 133/69
--- NOTE | 2024-04-03 17:42 | NUR ---
SHIFT SUMMARY: - ATRIAL LEAD DISLODGEMENT, RETURNED TO LICENSED ARCHITECT FOR REVISION - L CHEST SITE W/O SITE COMPLICATION - STRICT LEFT ARM IMMOBILIZATION - BED ALARM IN USE FOR PT SAFETY - PT REMAINS FORGETFUL AND IMPULSIVE, HIGH FALL RISK
[2024-04-03 19:21] VITALS: BP 131/63
[2024-04-03] MEDS ORDERED: CeFAZolin Sodium 2,000 MG in NS 100 ML IV SCH (19:30)
[2024-04-03 23:44] VITALS: BP 159/81
[2024-04-04 03:35] VITALS: BP 148/64
[2024-04-04 03:52] LABS: Hematocrit 36.9 % (37.0-53.0); Hemoglobin 12.3 g/dL (13.5-17.5); Mean Corpuscular HGB 29.7 pg (26.0-34.0); Mean Corpuscular HGB Conc 33.3 g/dL (31.5-36.5); Mean Corpuscular Volume 89 fL (80-100); Mean Platelet Volume 9.5 fL (9.1-12.4); Platelet Count 236 K/mm3 (150-400); RDW Coefficient Variation 14.2 % (11.7-14.2); RDW Standard Deviation 46.2 fL (35.1-46.3); Red Blood Cell Count 4.14 M/mm3 (4.30-5.90); White Blood Cell Count 7.77 K/mm3 (4.00-11.30)
[2024-04-04 04:10] LABS: Bun/Creatinine Ratio 22.8 (12.0-20.0); Calcium, Blood 9.6 mg/dL (8.5-10.1); Creatinine, Blood 1.23 mg/dL (0.60-1.20); Potassium, Blood 3.9 mmol/L (3.5-5.5)
--- NOTE | 2024-04-04 05:40 | NUR ---
SHIFT SUMMARY A/Ox3 AND MOSTLY COOPERATIVE WITH CARE. ANSWERS MOST QUESTIONS APPROPRIATELY AND ABLE TO MAKE HIS NEEDS KNOWN. FORGETFUL AND IMPULSIVE AT TIMES. CAN BE IRRITABLE WITH STAFF AT TIMES WELL. NO ACUTE EVENTS OVER NIGHT. CARDIAC, REMAINS AV PACED WITH INTERMITTENT PVC'S NOTED. EKG CONDUCTED THIS AM FOR POST LEAD ADJUSTMENT ORDERED. SBP REMAINS STABLE WITH NO REPORTS OF DIZZINESS. DOES REPORT SOME MILD SITE TENDERNESS THAT IS MANAGED WELL WITH PRN PAIN MEDICATIONS. SHOULDER IMMOBILIZER REMAINS IN PLACE. RESPIRATORY, MAINTAINS SPO2 >95% ON RA WITH NO REPORTS OF SOB OR DYSPNEA. ABLE TO WALK TO THE BATHROOM TO VOID WITH MINIMAL STAFF ASSISTANCE. NO NEW ORDERS AT THIS TIME, WILL REPORT TO ONCOMING RN. CARLOS ROMAN OF THIS NOTE.
[2024-04-04 07:25] VITALS: BP 140/70
--- NOTE | 2024-04-04 07:28 | NUR ---
ASSUMPTION OF CARE ASSUMED CARE AT 0700 FOLLOWING REPORT FROM NOC RN. PT A&OX4. ENDORSES LOCALIZED PAIN TO INCISION SITE TO PALPATION ONLY. SITE IS CLEAN, DRY AND INTACT. NO COMPLICATIONS PRESENT. ON CONTINUOUS CARDIAC MONITORING, ATRIAL AND VENTRICULAR PACER SPIKES PRESENT. BP 140/70. PT DENIES CHEST PAIN/PRESSURE, DIZZINESS, PALPITATIONS.
[2024-04-04] MEDS ORDERED: Cephalexin Monohydrate 500 MG Cap PO SCH (09:00)
[2024-04-04] MEDS ORDERED: CEPH500 PO (10:20)
[2024-04-04] MEDS ORDERED: AMLO5 PO (10:20)
[2024-04-04] MEDS ORDERED: THYROID PO (10:20)
[2024-04-04] MEDS ORDERED: Midodrine HCl2.5 MG PO (10:21)
[2024-04-04 11:14] VITALS: BP 140/70
[2024-04-04] MEDS ORDERED: Apixaban 5 MG Tab PO SCH (21:00)
== END 2024-04-04 11:50 | disposition home or self-care (01) | DRG 243 ==
LOC: ER 13:02 → PCU 13:03
PROVIDERS: Emergency Medicine; Family Medicine; Internal Medicine Cardiovascular Disease; ADMIT Internal Medicine
PROC: 0JH606Z Insertion of Pacemaker, Dual Chamber into Chest Subcutaneous Tissue and Fascia, Open Approach (ICD-10-PCS; principal; 2024-04-02)
PROC: 02H63JZ Insertion of Pacemaker Lead into Right Atrium, Percutaneous Approach (ICD-10-PCS; 2024-04-02)
PROC: 02HK3JZ Insertion of Pacemaker Lead into Right Ventricle, Percutaneous Approach (ICD-10-PCS; 2024-04-02)
PROC: 02WA0MZ Revision of Cardiac Lead in Heart, Open Approach (ICD-10-PCS; 2024-04-03)
DX: I44.0 Atrioventricular block, first degree (principal); T82.190A Other mechanical complication of cardiac electrode, initial encounter; I44.7 Left bundle-branch block, unspecified; G47.33 Obstructive sleep apnea (adult) (pediatric); N18.30 Chronic kidney disease, stage 3 unspecified; E11.22 Type 2 diabetes mellitus with diabetic chronic kidney disease; I12.9 Hypertensive chronic kidney disease with stage 1 through stage 4 chronic kidney disease, or unspecified chronic kidney disease; E78.5 Hyperlipidemia, unspecified; N40.0 Benign prostatic hyperplasia without lower urinary tract symptoms; Z90.5 Acquired absence of kidney; Z85.528 Personal history of other malignant neoplasm of kidney; Z79.01 Long term (current) use of anticoagulants; Z79.4 Long term (current) use of insulin; Z79.890 Hormone replacement therapy; F32.A Depression, unspecified; I95.1 Orthostatic hypotension; I49.5 Sick sinus syndrome; I48.0 Paroxysmal atrial fibrillation; Y71.8 Miscellaneous cardiovascular devices associated with adverse incidents, not elsewhere classified
CPT/HCPCS: 33208; 33215; 36415; 71045; 71046; 80048; 80053; 80069; 82947; 83735; 83880; 84439; 84443; 84484; 85025; 85027; 86618; 92953; 93005; 93010; 93306; 94640; 94664; 94760; 94762; 96374-59; 99152; 99153; 99285-25; A9270; C1785; C1894; C1898; G0378; J0461; J0690; J1644; J1815; J2250; J3010; J3475; J7030; J7040; Q9967

== ENCOUNTER 2025-01-02 17:00 | Inpatient (IN) | payer OTHER ==
[~2025-01-02] VITALS: Ht 175.3 cm; Wt 68.3 kg
[~2025-01-02 17:00] MED LIST changes: +AMLO5 PO; +Armour Thyroid90 MG PO; +Crestor40 MG PO; +ELIQUIS5 M2 PO; +EUTHYROX112 MCG PO; +Furosemide40 MG PO; +JARDIANCE10 MG PO; +LIDO700A20 TOP; +LOSA25 PO; +METO25 PO; +Midodrine HCl2.5 MG PO; +SPIR25 PO; +STIOLTO RESPIMAT4 G1 INH
[2025-01-02 17:23] VITALS: BP 124/67
[2025-01-02 18:05] LABS: BASOPHILS ABSOLUTE AUTO 0.01 K/mm3 (0.00-0.23); BASOPHILS PERCENT AUTO 0 % (0-2); EOSINOPHILS ABSOLUTE AUTO 0.18 K/mm3 (0.00-0.68); EOSINOPHILS PERCENT AUTO 2 % (0-6); Hematocrit 44.5 % (37.0-53.0); Hemoglobin 13.7 g/dL (13.5-17.5); IMMATURE GRAN ABSOLUTE AUTO 0.05 K/mm3 (0.00-0.10); IMMATURE GRAN PERCENT AUTO 1 % (0-1); LYMPHOCYTES ABSOLUTE AUTO 0.75 K/mm3 (0.84-5.20); LYMPHOCYTES PERCENT AUTO 7 % (21-46); MONOCYTES ABSOLUTE AUTO 0.81 K/mm3 (0.16-1.47); MONOCYTES PERCENT AUTO 8 % (4-13); Mean Corpuscular HGB Conc 30.8 g/dL (31.5-36.5); Mean Corpuscular Volume 85 fL (80-100); NEUTROPHILS ABSOLUTE AUTO 8.42 K/mm3 (1.96-9.15); NEUTROPHILS PERCENT AUTO 82 % (41-73); NRBC ABSOLUTE 0.00 K/mm3 (0.00-0.02); NRBC Auto 0.0 /100 WBC (0.0-0.2); Platelet Count 253 K/mm3 (150-400); RDW Coefficient Variation 15.6 % (11.7-14.2); RDW Standard Deviation 48.1 fL (35.1-46.3)
--- NOTE | 2025-01-02 18:20 | NUR ---
PT IS A DIRECT ADMIT FROM CARDIO DR CRABTREE, ORDERS RECEIVED. DR ROBERTS IN TO SEE PT APPROX 1730, STATES HE WILL WRITE ORDERS AND FAX THEM- PT SENT FOR CHEST CT AT 1800. PLACED OXYGEN 2L, ABG ORDERED AN HOUR LATER. WILL SET UP TELE AND EKG ONCE PT ARRIVES BACK TO ROOM. ACCOMPANING PT, ANDWERS MOST OF HX QUESTIONS PT IS A POOR HISTORIAN. WILL REPORT OFF TO NOC RN
[2025-01-02 19:19] LABS: Alanine Aminotransfer (ALT/SGP 116.0 U/L (12-78); Albumin, Blood 2.8 g/dL (3.4-5.0); Albumin/Globulin Ratio 0.9 (0.8-1.8); Anion Gap 6.0 mmol/L (3-11); Aspartate Aminotrans (AST/SGOT 60.0 U/L (12-37); Bilirubin, Total 0.8 mg/dL (0.1-1.0); Blood Urea Nitrogen 30.0 mg/dL (8-24); CO2, Blood 35.0 mmol/L (21-32); Calcium, Blood 9.1 mg/dL (8.5-10.1); Chloride, Blood 97.0 mmol/L (98-108); Creatinine, Blood 1.22 mg/dL (0.60-1.20); Globulin, Blood 3.2 g/dL (2.2-4.0); Glucose, Blood 353.0 mg/dL (70-99); Magnesium, Blood 1.6 mg/dL (1.6-2.4); Potassium, Blood 3.9 mmol/L (3.5-5.5); Sodium, Blood 134.0 mmol/L (136-145); Thyroid Stimulating Hormone 3.63 uIU/mL (0.360-4.800); Total Protein, Blood 6.0 g/dL (6.4-8.2)
[2025-01-02 19:22] VITALS: BP 125/69
[2025-01-02] MEDS ORDERED: Albuterol 2.5 MG/3 ML VIAL INH PRN (19:30)
[2025-01-02] MEDS ORDERED: Insulin Glargine-Yfgn 100 Unit/mL 3 ML SYR SC SCH (21:00)
[2025-01-02] MEDS ORDERED: Insulin Human Lispro 100 Units/ML 3ML Syringe SC SCH (21:00)
[2025-01-02 23:18] VITALS: BP 123/69
[2025-01-03 04:20] VITALS: BP 114/67
--- NOTE | 2025-01-03 05:09 | NUR ---
SHIFT SUMMARY: PT AOX3-4 SOME CONFUSION AND FORGETFULNESS BUT CALLS APPROPRIATELY AND ABLE TO MAKE NEEDS KNOWN. VOIDING WELL, GETTING UP AND GOING TO THE BATHROOM WITH A 1PA WITH A FWW. VERY PLEASANT AND FOLLOWS COMMANDS. PT IS ON TELE RUNNING AV PACED ~70BPM CURRENTLY. PT DENIES CHEST PAIN OR SOB. SATTING WELL ON RA, SO RT TOOK HIM OFF O2. PT TROPS TRENDED SLIGHTLY UP FROM 116 TO 127, PROVIDER NOTIFIED AND CONTINUING TO MONITOR. PREFERS TO SLEEP IN RECLINER, CHAIR ALARM IN PLACE. PT TOLERATING MEDICATIONS WELL. RESTLESS BUT PLEASANT. IN CHAIR RESTING, CHAIR LOCKED, CHAIR ALARM IN PLACE, CALL LIGHT IN REACH. CONTINUING CARE.
[2025-01-03 06:30] LABS: BASOPHILS ABSOLUTE AUTO 0.02 K/mm3 (0.00-0.23); BASOPHILS PERCENT AUTO 0 % (0-2); EOSINOPHILS ABSOLUTE AUTO 0.26 K/mm3 (0.00-0.68); EOSINOPHILS PERCENT AUTO 2 % (0-6); Hematocrit 43.3 % (37.0-53.0); Hemoglobin 13.6 g/dL (13.5-17.5); IMMATURE GRAN ABSOLUTE AUTO 0.04 K/mm3 (0.00-0.10); IMMATURE GRAN PERCENT AUTO 0 % (0-1); LYMPHOCYTES ABSOLUTE AUTO 1.08 K/mm3 (0.84-5.20); LYMPHOCYTES PERCENT AUTO 9 % (21-46); MONOCYTES ABSOLUTE AUTO 0.89 K/mm3 (0.16-1.47); MONOCYTES PERCENT AUTO 7 % (4-13); Mean Corpuscular HGB Conc 31.4 g/dL (31.5-36.5); Mean Corpuscular Volume 83 fL (80-100); NEUTROPHILS ABSOLUTE AUTO 9.68 K/mm3 (1.96-9.15); NEUTROPHILS PERCENT AUTO 81 % (41-73); NRBC ABSOLUTE 0.00 K/mm3 (0.00-0.02); NRBC Auto 0.0 /100 WBC (0.0-0.2); Platelet Count 266 K/mm3 (150-400); RDW Coefficient Variation 15.6 % (11.7-14.2); RDW Standard Deviation 46.9 fL (35.1-46.3)
[2025-01-03 06:49] LABS: Magnesium, Blood 1.7 mg/dL (1.6-2.4)
[2025-01-03 06:50] LABS: Anion Gap 6.0 mmol/L (3-11); Blood Urea Nitrogen 30.0 mg/dL (8-24); CO2, Blood 34.0 mmol/L (21-32); Calcium, Blood 8.7 mg/dL (8.5-10.1); Chloride, Blood 98.0 mmol/L (98-108); Creatinine, Blood 1.28 mg/dL (0.60-1.20); Glucose, Blood 154.0 mg/dL (70-99); Potassium, Blood 3.6 mmol/L (3.5-5.5); Sodium, Blood 134.0 mmol/L (136-145)
[2025-01-03 07:49] VITALS: BP 108/89
[2025-01-03] MEDS ORDERED: CefTRIAXone Sodium 1,000 MG in NS 100 ML IV SCH (09:00)
[2025-01-03] MEDS ORDERED: Potassium Chloride 10 Meq Tablet SA PO SCH (09:00)
[2025-01-03] MEDS ORDERED: Ipratropium/Albuterol SulF 2.5-0.5MG/3 ML Amp INH SCH (11:55)
[2025-01-03 12:38] LABS: Glucose, Blood 289 mg/dL (70-99)
--- NOTE | 2025-01-03 12:59 | NUR ---
NOTE BINDERY LEADPERSON NOTIFIED THIS RN THAT PT BLOOD SUGAR READING READ HIGH, CALLED LAB TO GET STAT GLUCOSE DRAW. RESULT SHOWED BLOOD SUGAR WAS 289. VERIFIED WITH COVERAGE SPECIALIST RN EMELIA. THIS RN GAVE 3 UNITS OF INSULIN. NOTIFIED DR. CHRISTIANSON AND FURNACE STOCK INSPECTOR AT BEDSIDE.
--- NOTE | 2025-01-03 14:07 | NUR ---
NOTE PULMONOLOGY ORDERED FLUTTER VALVE THERAPY AND INCENTIVE SPIROMETER. BOTH AT BEDSIDE AND EDUCATED HOW TO USE TO PT. PULMONOLOGY D/C ELIQUISE DUE TO PT WILL HAVE THORENCENTISIS IN TWO DAYS. HOSPITALIST SAID PT WILL STAY IN HOSPITAL UNTIL PROCEDURE. FISCAL SERVICES DIRECTOR ORDERED REDUCED SODIUM DIET.
--- NOTE | 2025-01-03 15:48 | NUR ---
NOTE BREAK RN REPORTED "PER DR. CADENA, ADDING IV LASIX. NPO AFTER MIDNIGHT FOR POSSIBLE ANGIOGRAM IN AM."
[2025-01-03 16:12] LABS: Acinetobacter baumannii DNA Not Detected copy/mL (NOT DETECT); Escherichia coli DNA Not Detected copy/mL (NOT DETECT); Haemophilus influenzae DNA Not Detected copy/mL (NOT DETECT); Klebsiella aerogenes DNA Not Detected copy/mL (NOT DETECT); Klebsiella oxytoca DNA Detected Bin 10^6 copy/mL (NOT DETECT); Klebsiella pneumoniae DNA Not Detected copy/mL (NOT DETECT); Moraxella catarrhalis DNA Not Detected copy/mL (NOT DETECT); Proteus sp DNA Not Detected copy/mL (NOT DETECT); Pseudomonas aeruginosa DNA Not Detected copy/mL (NOT DETECT); Serratia marcescens DNA Not Detected copy/mL (NOT DETECT); Staphylococcus aureus DNA Not Detected copy/mL (NOT DETECT); Streptococcus agalactiae DNA Not Detected copy/mL (NOT DETECT); Streptococcus pneumoniae DNA Not Detected copy/mL (NOT DETECT); Streptococcus pyogenes DNA Not Detected copy/mL (NOT DETECT)
[2025-01-03 16:13] VITALS: BP 120/66
[2025-01-03 16:13] LABS: CTX-M Resistance Gene Not Detected; Chlamydia pneumonia Not Detected (NOT DETECT); Human Coronavirus RNA Not Detected (NOT DETECT); Human Metapneumovirus RNA Not Detected (NOT DETECT); IMP Resistance Gene Not Detected; Influenza virus A RNA Not Detected (NOT DETECT); Influenza virus B RNA Not Detected (NOT DETECT); KPC Resistance Gene Not Detected; NDM Resistance Gene Not Detected; OXA-48-like Resistance Gene Not Detected; Respiratory syncytial Vir RNA Not Detected (NOT DETECT); Rhinovirus+Enterovirus RNA Not Detected (NOT DETECT); VIM Resistance Gene Not Detected
--- NOTE | 2025-01-03 16:47 | NUR ---
Patient is sitting on chair and alert. He tells me about his strong [employer] alfredo and his trips back and forth to [place]. He asks about my life, my family and my alfredo. I provided prayer and companionship. Patient responded well and showed signs of an elevated mood.
[2025-01-03 19:22] VITALS: BP 117/76
--- NOTE | 2025-01-03 19:47 | NUR ---
SHIFT SUMMARY PT A&OX4 WITH INTERMITTENT CONFUSION. PT ADMITTED DUE TO CHF. PT REPORTS NO CHEST PAIN. PT REPORTS NO GENERALIZED PAIN. PAIN. PT ON RA, SATS ARE 96%. PLAN IS PT WILL BE NPO AT MIDNIGHT FOR ANGIOGRAM IN AM. AWAITING THORENCENTESIS 2 DAYS POST ELIQUISE WAS STOPPPED. PT HAS STRICT I&O. PT GOT IV ANTIBIOTIC AND LASIX. FLUTTER VALVE AND INCENTIVE SPIROMETER AT BEDSIDE. PT ON TELE, NO TELE REPORTS NOTED. PT ACHS BLOOD SUGARS, MANAGED PER EMAR. PT IN BED, BED IN LOWEST POSITION, CALL LIGHT IN REACH. BED ALARM ON DUE TO IMPULSIVITY.
[2025-01-04] VITALS (7 sets, daily range): BP systolic 95–137; BP diastolic 61–80
[2025-01-04 04:50] LABS: BASOPHILS ABSOLUTE AUTO 0.02 K/mm3 (0.00-0.23); BASOPHILS PERCENT AUTO 0 % (0-2); EOSINOPHILS ABSOLUTE AUTO 0.18 K/mm3 (0.00-0.68); EOSINOPHILS PERCENT AUTO 2 % (0-6); Hematocrit 47.1 % (37.0-53.0); Hemoglobin 15.1 g/dL (13.5-17.5); IMMATURE GRAN ABSOLUTE AUTO 0.05 K/mm3 (0.00-0.10); IMMATURE GRAN PERCENT AUTO 0 % (0-1); LYMPHOCYTES ABSOLUTE AUTO 1.25 K/mm3 (0.84-5.20); LYMPHOCYTES PERCENT AUTO 11 % (21-46); MONOCYTES ABSOLUTE AUTO 0.99 K/mm3 (0.16-1.47); MONOCYTES PERCENT AUTO 9 % (4-13); Mean Corpuscular HGB Conc 32.1 g/dL (31.5-36.5); Mean Corpuscular Volume 83 fL (80-100); NEUTROPHILS ABSOLUTE AUTO 9.11 K/mm3 (1.96-9.15); NEUTROPHILS PERCENT AUTO 79 % (41-73); NRBC ABSOLUTE 0.00 K/mm3 (0.00-0.02); NRBC Auto 0.0 /100 WBC (0.0-0.2); Platelet Count 255 K/mm3 (150-400); RDW Coefficient Variation 16.0 % (11.7-14.2); RDW Standard Deviation 47.5 fL (35.1-46.3)
[2025-01-04 05:17] LABS: Anion Gap 7.0 mmol/L (3-11); Blood Urea Nitrogen 27.0 mg/dL (8-24); CO2, Blood 32.0 mmol/L (21-32); Calcium, Blood 9.7 mg/dL (8.5-10.1); Chloride, Blood 100.0 mmol/L (98-108); Creatinine, Blood 1.31 mg/dL (0.60-1.20); Glucose, Blood 146.0 mg/dL (70-99); Potassium, Blood 3.4 mmol/L (3.5-5.5); Sodium, Blood 136.0 mmol/L (136-145)
--- NOTE | 2025-01-04 05:51 | NUR ---
SHIFT SUMMARY; PATIENT WAS AWAKE MOST OF THE NIGHT, MOVING FROM BED TO CHAIR TO BR. REFUSED TO LET US CHANGE HIS BRIEF, OR WEAR PUL. OX FINGER PROBE. TOOK TELE OFF MULTIPLE TIMES BED ALARM SOUNDING OFTEN. TELE V PACED,95 NPO AFTER MIDNIGHT
[2025-01-04] MEDS ORDERED: Potassium Chloride 10 Meq Tablet SA PO SCH ×2 (09:00→21:00)
[2025-01-04 09:02] LABS: Enterobacter cloacae DNA Not Detected copy/mL (NOT DETECT)
[2025-01-04] MEDS ORDERED: NS 250 ML IV PRN (10:40)
--- NOTE | 2025-01-04 13:42 | NUR ---
NOTE PT HAS BEEN NPO TODAY DUE TO POSSIBLE ANGIOGRAM PER DR. GORDON YESTERDAY. CALLED [facility] TO GET AN UPDATE ON WHAT TIME IT IS OCCURING, THEY RESPONDED NOT KNOWING PT. CALLED DR. CADENA OFFICE, RECEIVED CELL NUMBER. THIS RN CALLED CELL, UNABLE TO LEAVE VOICEMAIL. THIS RN NOTIFIED SUPERVISOR VAT HOUSE. READ DR. CADENA NOTE WHICH SAID "WHEN VOLUME STATUS IS BETTER AND ELIQUIS HAS HAD A CHANCE TO WEAR OFF THEN CORONARY ANGIOGRAM." CALLED DR. CHRISTIANSON TO NOTIFY PT IS NPO, AND DR. CADENA NOTE, DR. CHRISTIANSON STATED "WILL UPDATE DIET ORDER, PT CAN EAT." NOTIFIED DR. PERRIN.
--- NOTE | 2025-01-04 14:55 | NUR ---
NOTE DR. CADENA CAME TO ASSESS PT. STATED NPO AT MIDNIGHT 7-18 FOR ANGIO 7-19.
--- NOTE | 2025-01-04 17:31 | NUR ---
SHIFT SUMMARY PT A&OX3, POOR HISTORIAN. CODE STATUS UPDATED TO DNR. PT ADMITTED DUE TO CHF. PT REPORTS NO GENERALIZED PAIN/CHEST PAIN. PT STATES CHRONIC SOB. PT IS A 1 ASSIST WITH USE OF FURNITURE OR FWW. SAWYER VILLAR CALLED TO REPORT "PT MUST BE WITHOUT O2 BEFORE PROCEDURE, PASS OFF TO NIGHT RN. NOTIFY NURSING FARM AGENT IF PT REQUIRES O2." PT ON ROOM AIR. MAINTAINING SPO2 OF 96%. PT ON TELE, NO TELE REPORTS. PLAN IS NPO AT MIDNIGHT, TO HAVE ANGIOGRAM TOMORROW. PT HAS STRICT I&O. PT IN BED, BED IN LOWEST POSITION, CALL LIGHT IN REACH. PT BED ALARM ON DUE TO IMPULSIVITY.
--- NOTE | 2025-01-04 20:00 | NUR ---
AT START OF SHIFT PT WANTED TO GO HOME, STATING IT WAS "BORING." HE CALLED SEVERAL TIMES TO ASK HER TO PICK HIM UP, BUT DID NOT ANSWER. EXPLAINED TO PT THAT HE HAS A PROCEDURE IN THE AM. PT OKAY W/ THIS EXPLANATION FOR NOW. HE CONTINUES TO CALL UNTIL SHE PICKS UP.
--- NOTE | 2025-01-04 21:47 | NUR ---
PT HAD POC BG [id number], NOTIFIED HOSPITALIST. NO NEW ORDERS. INSULIN GIVEN PER EMAR.
[2025-01-05 04:07] VITALS: BP 124/76
[2025-01-05 04:42] LABS: BASOPHILS ABSOLUTE AUTO 0.03 K/mm3 (0.00-0.23); BASOPHILS PERCENT AUTO 0 % (0-2); EOSINOPHILS ABSOLUTE AUTO 0.24 K/mm3 (0.00-0.68); EOSINOPHILS PERCENT AUTO 2 % (0-6); Hematocrit 44.9 % (37.0-53.0); Hemoglobin 14.3 g/dL (13.5-17.5); IMMATURE GRAN ABSOLUTE AUTO 0.06 K/mm3 (0.00-0.10); IMMATURE GRAN PERCENT AUTO 1 % (0-1); LYMPHOCYTES ABSOLUTE AUTO 1.10 K/mm3 (0.84-5.20); LYMPHOCYTES PERCENT AUTO 10 % (21-46); MONOCYTES ABSOLUTE AUTO 1.00 K/mm3 (0.16-1.47); MONOCYTES PERCENT AUTO 10 % (4-13); Mean Corpuscular HGB Conc 31.8 g/dL (31.5-36.5); Mean Corpuscular Volume 83 fL (80-100); NEUTROPHILS ABSOLUTE AUTO 8.14 K/mm3 (1.96-9.15); NEUTROPHILS PERCENT AUTO 77 % (41-73); NRBC ABSOLUTE 0.00 K/mm3 (0.00-0.02); NRBC Auto 0.0 /100 WBC (0.0-0.2); Platelet Count 236 K/mm3 (150-400); RDW Coefficient Variation 16.0 % (11.7-14.2); RDW Standard Deviation 47.8 fL (35.1-46.3)
[2025-01-05 04:59] LABS: Anion Gap 5.0 mmol/L (3-11); Blood Urea Nitrogen 27.0 mg/dL (8-24); CO2, Blood 33.0 mmol/L (21-32); Calcium, Blood 9.4 mg/dL (8.5-10.1); Chloride, Blood 102.0 mmol/L (98-108); Creatinine, Blood 1.42 mg/dL (0.60-1.20); Glucose, Blood 178.0 mg/dL (70-99); Potassium, Blood 3.8 mmol/L (3.5-5.5); Sodium, Blood 136.0 mmol/L (136-145)
--- NOTE | 2025-01-05 05:54 | NUR ---
SHIFT SUMMARY PT HERE FOR NEW ONSET CHF. HE HAS BEEN AOX3-4, CALM AND COOPERATIVE. HE HAS PERIODS OF IMPULSIVITY AND FORGETFULNESS. HE HAS HAD BED ALARM AND CHAIR ALARM ON. TONIGHT, HE HAS BEEN RESTLESS SINCE START OF SHIFT. AT FIRST, HE WAS CALLING HIS TO PICK HIM UP, AND TELLING STAFF HE WANTS TO LEAVE. PT HAS BEEN EASILY REDIRECTED. HE HAS NOT USED CALL LIGHT TO GET OOB. HE HAS BEEN 1PA W/FWW. PT HAS EXPRESSED FRUSTRATION W/ NPO ORDER, AND NEEDS CONSTANT REMINDING THAT HE HAS PROCEDURE IN AM. PT HAS TELE ON, NO ACUTE EVENTS OVERNIGHT. PT CURRENTLY ASLEEP. NO ACUTE EVENTS OVERNIGHT.
[2025-01-05 06:36] VITALS: BP 99/60
[2025-01-05 07:35] VITALS: BP 104/75
[2025-01-05] MEDS ORDERED: Verapamil HCL 2.5 MG/ML 2ML Injection ONE (08:14)
[2025-01-05] MEDS ORDERED: NS 1,000 ML IV ONE (08:15)
[2025-01-05] MEDS ORDERED: Heparin Sodium 1000 Units/ML 10ML MDV ONE (08:15)
[2025-01-05] MEDS ORDERED: NS 0 ML IV ONE (08:15)
[2025-01-05 10:57] VITALS: BP 91/61
[2025-01-05] MEDS ORDERED: IPRAT-ALBUT 0.5-3 ML INH (14:04)
[2025-01-05] MEDS ORDERED: DULO30 PO (14:07)
[2025-01-05] MEDS ORDERED: FURO20 PO (14:07)
[2025-01-05] MEDS ORDERED: POTA10T PO (14:07)
[2025-01-05] MEDS ORDERED: FLUT1DIS8 INH (14:09)
[2025-01-05] MEDS ORDERED: DOXY100 PO (15:05)
[2025-01-05] MEDS ORDERED: METO25ER PO (15:06)
[2025-01-05] MEDS ORDERED: VISBIOME 112.51 EACH PO (15:06)
[2025-01-05] MEDS ORDERED: CEFU500T30 PO (15:07)
[2025-01-05 15:31] LABS: Automated BF RBC Count 0.009 M/mm3 (0-0); Automated BF WBC Count 0.213 K/mm3 (0-999)
[2025-01-05 15:32] LABS: RBC Count, Body Fluid 9000 /mm3 (0-0)
[2025-01-05 15:39] VITALS: BP 117/74
[2025-01-05 15:52] LABS: Albumin, Body Fluid 1.4 g/dL; Glucose, Body Fluid 201 mg/dL; Lactate Dehydrogenase, Body Fl 96 U/L
[2025-01-05 16:27] LABS: Color, Body Fluid Yellow (None-Yellow); Lymphocytes, Fluid 53.0 % (0.0-18.0); Monocytes/Mononuclear, Fluid 19.0 % (0.0-50.0); Neutrophils, Fluid 26.0 % (0.0-25.0); Total Cell Count, Body Fluid 100
--- NOTE | 2025-01-05 18:25 | NUR ---
DISCHARGE SUMMARY AOX4. MEDICATION COMPLIANT. RELIEF PILOT CANCELED CARDIAC ANGIOGRAM FOR THIS MORNING. THOROCENTESIS OF LEFT SIDE PERFORMED, WITH CXR TO VERIFY. DISCHARGE ORDERS RECEIVED. MEDICATION FAXED TO [facility] [place] IS CLOSED AT THIS TIME. IV AND TELE D/C'D. DISCHARGE PACKET GIVEN TO AND EXPLAINED TO CLIENT AND SPOUSE. CLIENT LEFT UNIT VIA WHEELCHAIR ESCORTED BY SPOUSE.
== END 2025-01-05 17:59 | disposition home health service (06) | DRG 280 ==
LOC: MEDS 17:00
PROVIDERS: Internal Medicine Cardiovascular Disease; Internal Medicine Critical Care Medicine; Nurse Practitioner Acute Care; Student in an Organized Health Care Education/Training Program; ADMIT Student in an Organized Health Care Education/Training Program
PROC: 0W9B3ZZ Drainage of Left Pleural Cavity, Percutaneous Approach (ICD-10-PCS; principal; 2025-01-05)
DX: I13.0 Hypertensive heart and chronic kidney disease with heart failure and stage 1 through stage 4 chronic kidney disease, or unspecified chronic kidney disease (principal); I50.23 Acute on chronic systolic (congestive) heart failure; I21.4 Non-ST elevation (NSTEMI) myocardial infarction; J18.9 Pneumonia, unspecified organism; J96.01 Acute respiratory failure with hypoxia; J98.11 Atelectasis; J90 Pleural effusion, not elsewhere classified; R64 Cachexia; Z66 Do not resuscitate; I48.0 Paroxysmal atrial fibrillation; E11.22 Type 2 diabetes mellitus with diabetic chronic kidney disease; E03.9 Hypothyroidism, unspecified; G47.33 Obstructive sleep apnea (adult) (pediatric); M85.80 Other specified disorders of bone density and structure, unspecified site; F17.210 Nicotine dependence, cigarettes, uncomplicated; E78.5 Hyperlipidemia, unspecified; J44.9 Chronic obstructive pulmonary disease, unspecified; N40.0 Benign prostatic hyperplasia without lower urinary tract symptoms; N18.31 Chronic kidney disease, stage 3a; I35.0 Nonrheumatic aortic (valve) stenosis; E87.6 Hypokalemia; I42.9 Cardiomyopathy, unspecified; I44.1 Atrioventricular block, second degree; Z95.0 Presence of cardiac pacemaker; Z79.01 Long term (current) use of anticoagulants; Z79.4 Long term (current) use of insulin; Z79.84 Long term (current) use of oral hypoglycemic drugs; Z79.899 Other long term (current) drug therapy; Z79.890 Hormone replacement therapy; Z85.528 Personal history of other malignant neoplasm of kidney; Z90.5 Acquired absence of kidney
CPT/HCPCS: 0528U; 36415; 71045; 71250; 80048; 80053; 82042; 82550; 82945; 82947; 83036; 83615; 83735; 83880; 84157; 84443; 84484; 85025; 89051; 93005; 93010; 93306; 94640; 94664; 94760; 94762; 96374; 96375; A9270; G0378; J0696; J1644; J1815; J1938; J7030; J7050

== ENCOUNTER 2025-01-14 18:31 | Inpatient (IN) | payer OTHER ==
[~2025-01-14] VITALS: Ht 177.8 cm; Wt 67.2 kg
[~2025-01-14 18:31] MED LIST changes: +CEFU500T30 PO; +DOXY100 PO; +DULO30 PO; +FLUT1DIS8 INH; +FURO20 PO; +IPRAT-ALBUT 0.5-3 ML INH; +METO25ER PO; +POTA10T PO
[2025-01-14 20:04] LABS: BASOPHILS ABSOLUTE AUTO 0.04 K/mm3 (0.00-0.23); BASOPHILS PERCENT AUTO 1 % (0-2); EOSINOPHILS ABSOLUTE AUTO 0.20 K/mm3 (0.00-0.68); EOSINOPHILS PERCENT AUTO 2 % (0-6); Hematocrit 45.0 % (37.0-53.0); Hemoglobin 14.0 g/dL (13.5-17.5); IMMATURE GRAN ABSOLUTE AUTO 0.04 K/mm3 (0.00-0.10); IMMATURE GRAN PERCENT AUTO 1 % (0-1); LYMPHOCYTES ABSOLUTE AUTO 0.82 K/mm3 (0.84-5.20); LYMPHOCYTES PERCENT AUTO 10 % (21-46); MONOCYTES ABSOLUTE AUTO 0.60 K/mm3 (0.16-1.47); MONOCYTES PERCENT AUTO 7 % (4-13); Mean Corpuscular HGB Conc 31.1 g/dL (31.5-36.5); Mean Corpuscular Volume 84 fL (80-100); NEUTROPHILS ABSOLUTE AUTO 6.88 K/mm3 (1.96-9.15); NEUTROPHILS PERCENT AUTO 80 % (41-73); NRBC ABSOLUTE 0.00 K/mm3 (0.00-0.02); NRBC Auto 0.0 /100 WBC (0.0-0.2); Platelet Count 215 K/mm3 (150-400); RDW Coefficient Variation 16.0 % (11.7-14.2); RDW Standard Deviation 49.1 fL (35.1-46.3)
[2025-01-14 20:15] LABS: Anion Gap 4.0 mmol/L (3-11); Blood Urea Nitrogen 35.0 mg/dL (8-24); CO2, Blood 38.0 mmol/L (21-32); Calcium, Blood 9.1 mg/dL (8.5-10.1); Chloride, Blood 96.0 mmol/L (98-108); Creatinine, Blood 1.52 mg/dL (0.60-1.20); Glucose, Blood 314.0 mg/dL (70-99); Potassium, Blood 4.9 mmol/L (3.5-5.5); Sodium, Blood 133.0 mmol/L (136-145)
[2025-01-14] MEDS ORDERED: Morphine Sulfate 4 MG/1 ML Injection IV ONE (20:15)
[2025-01-14 20:18] LABS: Prothrombin Time Results 11.8 Sec (9.7-11.5)
[2025-01-14] MEDS ORDERED: Ondansetron HCl 2 MG / ML 2ML Vial IV PRN (22:30)
[2025-01-14] MEDS ORDERED: Morphine Sulfate 4 MG/1 ML Injection IV PRN (22:35)
[2025-01-14] MEDS ORDERED: Naloxone HCl 0.4MG / ML 1ML Vial IV PRN (22:35)
[2025-01-14] MEDS ORDERED: Ipratropium/Albuterol SulF 2.5-0.5MG/3 ML Amp INH PRN (22:40)
[2025-01-14] MEDS ORDERED: Insulin Glargine-Yfgn 100 Unit/mL 3 ML SYR SC SCH (23:49)
[2025-01-14] MEDS ORDERED: Formoterol/Mometasone MDI 5/200 mcg 13 GM INH SCH (23:55)
[2025-01-15] MEDS ORDERED: NS 1,000 ML IV SCH
[2025-01-15 01:42] VITALS: BP 100/68
[2025-01-15] MEDS ORDERED: POTA10T PO (02:24)
[2025-01-15 05:57] LABS: BASOPHILS ABSOLUTE AUTO 0.03 K/mm3 (0.00-0.23); BASOPHILS PERCENT AUTO 0 % (0-2); EOSINOPHILS ABSOLUTE AUTO 0.15 K/mm3 (0.00-0.68); EOSINOPHILS PERCENT AUTO 2 % (0-6); Hematocrit 45.7 % (37.0-53.0); Hemoglobin 14.0 g/dL (13.5-17.5); IMMATURE GRAN ABSOLUTE AUTO 0.03 K/mm3 (0.00-0.10); IMMATURE GRAN PERCENT AUTO 0 % (0-1); LYMPHOCYTES ABSOLUTE AUTO 0.94 K/mm3 (0.84-5.20); LYMPHOCYTES PERCENT AUTO 11 % (21-46); MONOCYTES ABSOLUTE AUTO 0.72 K/mm3 (0.16-1.47); MONOCYTES PERCENT AUTO 8 % (4-13); Mean Corpuscular HGB Conc 30.6 g/dL (31.5-36.5); Mean Corpuscular Volume 85 fL (80-100); NEUTROPHILS ABSOLUTE AUTO 6.88 K/mm3 (1.96-9.15); NEUTROPHILS PERCENT AUTO 79 % (41-73); NRBC ABSOLUTE 0.00 K/mm3 (0.00-0.02); NRBC Auto 0.0 /100 WBC (0.0-0.2); Platelet Count 200 K/mm3 (150-400); RDW Coefficient Variation 16.0 % (11.7-14.2); RDW Standard Deviation 50.1 fL (35.1-46.3)
[2025-01-15 06:40] LABS: Alanine Aminotransfer (ALT/SGP 366.0 U/L (12-78); Albumin, Blood 2.6 g/dL (3.4-5.0); Albumin/Globulin Ratio 0.7 (0.8-1.8); Anion Gap 8.0 mmol/L (3-11); Aspartate Aminotrans (AST/SGOT 228.0 U/L (12-37); Bilirubin, Total 0.7 mg/dL (0.1-1.0); Blood Urea Nitrogen 37.0 mg/dL (8-24); CO2, Blood 33.0 mmol/L (21-32); Calcium, Blood 9.1 mg/dL (8.5-10.1); Chloride, Blood 96.0 mmol/L (98-108); Creatinine, Blood 1.44 mg/dL (0.60-1.20); Globulin, Blood 3.8 g/dL (2.2-4.0); Glucose, Blood 264.0 mg/dL (70-99); Magnesium, Blood 2.0 mg/dL (1.6-2.4); Potassium, Blood 4.5 mmol/L (3.5-5.5); Sodium, Blood 132.0 mmol/L (136-145); Total Protein, Blood 6.4 g/dL (6.4-8.2)
[2025-01-15 07:34] VITALS: BP 111/63
--- NOTE | 2025-01-15 07:56 | NUR ---
SHIFT SUMMARY ADMITTED FOR L HIP FX. LLE SHORTENED & EXTERNALLY ROTATED. PT DENIES N/T. REPORTS 03/29 PAIN TO L HIP, MEDICATED W/2MG IV MORPHINE & PT ABLE TO REST AFTER MEDS. CAP REFILL @4 SEC. WEAK PEDAL PULSE. AOX3-VERY FORGETFUL & POOR HISTORIAN. ABLE TO STATE, [place], [facility], NAME, WHY HE'S AT HOSPITAL- YET YELLS OUT FREQUENTLY "HELP ME, HELP ME" " NURSE!" STATES "I NEED TO DO SOMETHING, I NEED TO GET OUT OF BED." PT REQUIRING FREQUENT REMINDING HE CANT GET OOB REGARDING L HIP FX & PT THEN FORGETFUL HE EVEN HAS FX "OH I HAVE A BROKEN BONE". BED ALARM ON FOR SAFETY. PT REPORTS HE USES 4L 02 PRN & CPAP PRN @HOME, HAS BEEN ON RA HERE W/SPO2 >90%. TELE V. PACED HR 82. CALL LIGHT IN REACH.
[2025-01-15] MEDS ORDERED: Morphine Sulfate 4 MG/1 ML Injection IV PRN (08:45)
[2025-01-15] MEDS ORDERED: Lidocaine 4% 1 Patch TOP SCH (09:00)
[2025-01-15] MEDS ORDERED: DULoxetine HCL 30 MG Cap DR PO SCH (09:00)
[2025-01-15] MEDS ORDERED: Cholecalciferol 1000 Unit Tablet (=25MCG) PO SCH (09:00)
[2025-01-15] MEDS ORDERED: HYDROmorphone HCl/Pf 1MG SYR IV PRN (09:50)
--- NOTE | 2025-01-15 11:12 | NUR ---
DR PASCAL & DR CHEUNG IN TO SEE PT. THROUGH DISCUSSION WITH PT AND SIGNIFICANT OTHER, DECISION MADE TO NOT DO SURGERY R/T COMORBIDITIES AND FUTURE AD PLANNING. PALLIATIVE CARE TO ASSESS PT. JAMES ADAM TO ROOM TO ASSESS WITH PALLIATIVE CARE - DECISION TO DO COMFORT CARE IN PLACE. AWAITING DR LEWIS ORDERS.
[2025-01-15 11:34] VITALS: BP 115/71
[2025-01-15] MEDS ORDERED: Atropine Sulfate 1% Opth Soln 2ML BTL SL PRN (11:45)
[2025-01-15] MEDS ORDERED: Morphine Sulfate 20 MG/1ML 1 ML Oral Syringe SL PRN (11:50)
--- NOTE | 2025-01-15 12:32 | NUR ---
GOALS OF CARE VISIT: CALLED TO PT'S ROOM TO REVIEW CURRENT TREATMENT PLAN WITH PT AND , CADEN. PER REPORT FROM PRIMARY RN, [facility], DECLINED SURGICAL INTERVENTIONS D/T EXTENSIVE COMORBIDITIES, HIGH RISK AND POOR REHAB POTENTIAL. UPON ENTERING PT'S ROOM, PT WRITHING IN PAIN. PT STATES 15/10. FLACC SCALE 8/10 PER THIS PC RN'S ASSESSMENT. PT HAD RCV'D PAIN MEDICATION ONE HOUR PRIOR TO THIS VISIT. ICE PACK APPLIED TO LEFT HIP. PT REPOSITIONED IN BED. PROVIDER NOTIFIED OF POORLY MANAGED PAIN. PROVIDER PLACED NEW MEDICATION ORDERS. ONCE PT WAS MORE COMFORTABLE, CODE STATUS WAS REVIEWED WITH PT AND . PT ELECTS DNR/CLOTH DYE RANGE OPERATOR. GOAL IS TO MANAGE DISCOMFORT TO LEVEL ACCEPTABLE FOR PATIENT, ANXIETY AND AIR HUNGER. PT RECENTLY STARTED CONTINUOUS 2-4L OXYGEN (DECEMBER 22, 2024) FOR EASE OF BREATHING AND DESATS WITH ANY ACTIVITY. DECREASE IN MOBILITY FOR THE LAST 30 DAYS. PREVIOUSLY INDEPENDENT. NOW, USING [facility] FOR STABILITY WITH AMBULATION. INCREASE IN FALLS AEB, FALL YESTERDAY 01/14/25, DOWN IN DRIVEWAY APX 45 MIN. NOT ABLE TO GET PT OFF THE GROUND. PT/ WOULD LIKE TO PURSUE HOSPICE. PT WOULD GREATLY BENEFIT FROM HOSPICE AT A FACILITY. PCP IS [facility] AT [facility]. RCV'D COMFORT CARE ORDERS FROM PROVIDER. ORDERS PLACED ACCORDINGLY. POLST FILLED OUT TO REFLECT DNR/CLOTH DYE RANGE OPERATOR, PENDING PROVIDER SIGNATURE.
[2025-01-15 17:21] VITALS: BP 111/75
--- NOTE | 2025-01-15 18:19 | NUR ---
SUMMARY ASSUMED CARE OF PT @0700. SEE PROVIDER NOTE. POST COMFORT CARE ORDERS. PT MEDICATED FOR PAIN AND ANXIETY AND PT HAS PRESENTED MUCH MORE AT REST PER NURSE ASSESMENT,, PT REMARKS, AND SPOUSE REMARKS. IV REMAINS IN PALCE AT THIS TIME. REPOSITIONING TO MAINTAIN COMFORT. CONTINUING WITH HOME MEDICATION ROUTINE UNLESS PT REFUSES. VSS. BLADDER SCANNED, >900. DOUGHERTY PLACED W/O DIFFICULTY, PATENT AND DRAINING YELLOW URINE. TELE REMOVED BUT SPO2 REMAINS IN PALCE PT IS NOT BOTHERED BY THE CORD. OTHERWISE, BED ALARM ON, MEASURES IN PLACE TO ADDRESS PAIN/COMFORT. SPOUSE IN ROOM FOR SUPPORT.
[2025-01-15 19:07] VITALS: BP 117/65
[2025-01-15] MEDS ORDERED: Insulin Regular 100 UNIT/ML 10ML Vial SC SCH ×2 (21:00)
[2025-01-16 07:14] VITALS: BP 131/73
--- NOTE | 2025-01-16 10:31 | NUR ---
POST PATIENT PULLING CATHETER OUT ON WIRELESS ARCHITECT, URETHRAL BLEEDING PRESENT. UPON SHIFT CHANGE, IT HAD APPEARED THAT BLEEDING HAD CEASED. UPON CLEANING PT AND CHANGING BRIEF, THIS WAS FOUND TO NOT BE TRUE. URETHRA CONTINUES TO BLEED. ATTEMPTS TO KEEP AREA CLEAN ARE IN PLACE. DR CHEUNG TO BE MADE AWARE.
--- NOTE | 2025-01-16 17:06 | NUR ---
SUMMARY PT REMAINS ON COMFORT CARE. ALERT AT BEGINNING OF SHIFT - REQUIRED PAIN MEDS FOR REPOSITIONING AND CLEANING AND THEN RESTED FOR MAJORITY OF AFTERNOON - STATES BEING "COMFORTABLE CURRENTLY". URETHRAL BLEEDING OFF AND ON TODAY POST PREV SHIFT CATHETER PULLING. HAD TO STRAIGHT CATH AROUND 1630 POST BLADDER SCAN >500. PT DRAINED 550MLS, FIRST 200MLS WAS RED BLOOD, THE REST WAS TEA COLORED URINE. PT TOLERATED WELL. EFFORTS TO CLEAN PT'S PENIS IN PLACE AND TO MAINTAIN DRYNESS. PT BEING REPOSITIONED PER PT REQUEST. TOLERATING PO INTAKE AT THIS TIME. BED ALARM ON. BED IN LOW POSITION.
--- NOTE | 2025-01-16 17:15 | NUR ---
COMFORT CARE FAMILY CLARIFIED THAT THEY WANT TO CONTINUE WITH HOME MEDICATION REGIMEN POSSIBLE. ELIQUIS NOT BEING RESUMED DUE TO CONTINUED URETHRAL BLEEDING. DR CHEUNG TO RESUME HOME MEDS AFTER REVIEWING CHART. REMAINS COFORT CARE STATUS WITH PLAN FOR HOSPICE DC.
[2025-01-16 18:11] VITALS: BP 105/67
[2025-01-16 21:33] VITALS: BP 122/76
[2025-01-17 04:12] VITALS: BP 144/66
[2025-01-17 07:35] VITALS: BP 102/73
--- NOTE | 2025-01-17 07:45 | NUR ---
CHEM BG 63MG/DL. NO IV ACCESS. PT WILL NOT TAKE JUICE. WILL CONTINUE TO MONITOR.
--- NOTE | 2025-01-17 07:54 | NUR ---
MEDICATED PT WITH ATIVAN 1 MG SL PRIOR TO ATTEMPTING TO CATH PT. PT WAS STRAIGHT CATHED ON DAY SHIFT AFTER NO VOID. PT PULLED OUT HIS CATH BALLOON WAS INTACT. PTS PENIS HAS BEEN OOZING BLOOD SINCE. DAY SHIFT GOT A LOT OF BLOOD. SOME URINE AND HAD TO IRRIGATE TO GET A BLOOD CLOT OUT. I ATTEMPTED WITH A 16F CATH AND TRIED TO INFLATE THE BALLOON BUT IT WAS PAINFUL FOR PT AND NOT WHERE IT SHOULD BE. SOON I ADVANCED THE CATH BLOOD STARTED SLOWLY COMING DOWN TOHE TUBE TO THE BAG. WAS UNABLE TO ADVANCE CATH INTO THE BLADDER. HAD BAR MACHINE OPERATOR MULTIPLE SPINDLE COME IN AND ASSIST. NOT ABLE TO ADVANCE. REPORT TO DON THOMAS TO ASSUME CARE OF PT.
[2025-01-17] MEDS ORDERED: DULoxetine HCL 30 MG Cap DR PO SCH (09:00)
--- NOTE | 2025-01-17 09:20 | NUR ---
PT WITH NO CATHETER ACCESS. BLADDER SCANNED FOR 496. 14 FR COUDE PLACED AND IRRIGATION ATTEMPTED. GELATINOUS DRAINAGE COMING FROM URETHRA. UNABLE TO IRRIGATE MASS FROM BLADDER. DR ADEN CONSULTED. PLAN FOR 24FR PLACEMENT AND IRRIGATION.
[2025-01-17] MEDS ORDERED: LORazepam Conc 2 MG/ML - 1ML UDC PO PRN (09:45)
[2025-01-17] MEDS ORDERED: Morphine Sulfate 20 MG/1ML 1 ML Oral Syringe SL PRN (09:50)
[2025-01-17] MEDS ORDERED: Ondansetron 4 MG SoluTab MM PRN (09:50)
--- NOTE | 2025-01-17 12:22 | NUR ---
ASSUMED CARE OF PT @1200. RECEIVED REPORT FROM DON Ashton RN. PT WITH SNORING RESPIRATIONS. REMOVED FROM MITT RESTRAINTS UPON ASSUMPTION OF CARE DUE TO PT'S PRESENTATIO. PT'S SPOUSE EDUCATED THAT PT MAY BE MORE IMMINENT THAN INITIALLY THOUGHT AEB CRITICAL LOW BLOOD SUGAR AND PT NOT EATING. ADVISED TO CALL FAMILY. CONTUNOUS BLADDER IRRIGATION CONTINUES. SPOUSE REMAINS AT BEDSIDE.
--- NOTE | 2025-01-17 17:36 | NUR ---
"Spiritual Care | Comfort Care | EOL Education Pt. is on comfort care and is not responsive. Family are at bedside and welcome my visit. Facilitated a life review and consider matters of alfredo and belief. Prayed with the familiy and the Pt. EOL education is given tothe family members and the family has chosen [facility] as their family home. Family verbalized gratitude for the spiritual care visit and prayer."
--- NOTE | 2025-01-17 17:40 | NUR ---
SUMMARY POST ASSUMPTION OF CARE, PT HAS BEEN FAIRLY NONREACTIVE TO STIMULI OUTOSDE OF PAIN. MOVES ARMS OCCASIONALLY BUT LIMBS COLD TO TOUCH. SNORING RESPIRATIONS WITH OCCASIONAL APNEA. MEDS DC'D FROM HOME REGIMEN. SON UPDATED OF THESE DECISIONS- STRUGGLING WITH THESE AND WASN'T SURE HIS FATHER WOULD REALLY MAKE THESE DECISIONS DESPITE PREVIOUS NURSE CARIDAD AND PHYSICIAN MARKIE AND SPOUSE IN ROOM WHEN PT/SPOUSE DECIDED TO CEASE HOME MEDICATION REGIMEN. EDUCATION REINFORCED REGARDING THIS. CBI CONTINUES, URINE YELLOW/RED. REPSOTIONING FOR COMFORT BUT HAS NOT REQUIRED PAIN MEDICATION SINE ASSUMPTION OF CARE. FLACC O. OTHERWISE, BED ALARM ON. COMFORT MEASURES IN PLACE.
--- NOTE | 2025-01-17 18:43 | NUR ---
PALLIATIVE CARE VISIT: 1100 COMFORT CARE VISIT MADE. PT IN BED, APPEARS TO BE SLEEPING, SNORING VERY LOUDLY. IS AT BEDSIDE. PAINAD IS 0/10. DISCUSSED SYMPTOM MANAGEMENT WITH . REPORTS PT PAIN IS WELL MANAGED AND HAS NO COMPLAINTS. PT HAS DOUGHERTY CATHETER AND HAS PULLED OUT TWO TIMES ACCORDING TO . PT IN MITTENS TO PREVENT PULLING OUT CATHETER. SPOKE TO PRIMARY RN AND DR. ADEN ABOUT CONCERNS. PT NOW HAS TO HAVE CONTINUOUS BLADDER IRRIGATION DUE TO BLEEDING AND CLOTS BLOCKING URINATION. FOR COMFORT BLADDER IRRIGATION WAS STARTED. RECOMMENDED TO DC MITTENS AND PROVIDE SITTER IF PT CONTINUES TO TUG OR PULL ON CATHETER AND TO UTILIZE LIDOCAINE UROJET FOR COMFORT. UPDATED CM, PRIMARY RN AND DR. ADEN.
[2025-01-18] MEDS ORDERED: Lidocaine 2% Jelly Uro-Jet UR ONE (02:50)
--- NOTE | 2025-01-18 03:58 | NUR ---
0345- CALLED ,CADEN, AND INFORMED OF DOUGHERTY CLOTTED OFF WITH BLOOD. AGREED TO HAVING A SUPRA PUBIC CATH PLACED. DR HOLMAN CALLED AND INFORMED OF WIFES CHOICE. PROVIDER STATED HE WILL CALL IR FOR PLACEMENT OF SUPRAPUBIC CATH.
--- NOTE | 2025-01-18 05:22 | NUR ---
SHIFT SUMMARY NOC. PT ADMIT FOR L HIP FX AND ON COMFORT CARE AT THIS TIME. PT SOMNOLENT AND ONLY RESPONSIVE TO PAIN AT START OF SHIFT. PT BECAME MORE ALERT BUT NOTABLY STILL CONFUSED AROUND 0120 REPORTING ABDOMINAL PAIN. BLADDER NOTABLY DISTENDED. DISCUSSED WITH MANAGER NUCLEAR JONES JERRY. MULTIPLE ATTEMPTS TO IRRIGATE BLADDER AND FREE CLOT PREVENTING FLOW FROM CATHETER. CATHETER REPLACED WITH LITTLE IMPROVEMENT OF DISTENSION AND DECREASED FLOW. NURSING CUSTOMER ACCOUNT EXECUTIVE ELDON Dobson ASSISTED IN ATTEMPTING TO FREE CLOTS. HOSPITALIST NOTIFIED. PLAN IS FOR HOSPITALIST TO CONTACT IR FOR POSSIBLE SUPRAPUBIC CATH PLACEMENT. PT MEDICATED FOR PAIN PER EMAR, AND ATIVAN FOR AGITATION, BED ALARM SET FOR SAFETY. CALL LIGHT IN REACH.
--- NOTE | 2025-01-18 07:33 | NUR ---
Pt bladder scanned for 1133. oral ativan concentrate ordered from pharmacy. plan to attempt irrigation.
--- NOTE | 2025-01-18 08:42 | NUR ---
ATTEMPTED IRRIGATION OF CATH WITHOUT SUCCESS. DR ADEN NOTIFIED. DR LOCKETT CONSULTED. PLAN IS TO PLACE SP CATH.
--- NOTE | 2025-01-18 09:31 | NUR ---
PLUGGED DOUGHERTY CATHETER DC'D. WILL WAIT FOR CONSULT FOR SP PLACEMENT.
--- NOTE | 2025-01-18 09:48 | NUR ---
Nasir lawson(pt) appears to be asleep. Carmen (spouse) is at bedside. Spouse is conversational and friendly and appears encouraged by my prescence. Spouse is concerned with pt's wellbeing, pt has had difficulties overnight involving a catheter. Spouse remains steadfast in her support of the pt, and recounts a similar experience with a previous . Throughout this, she relied upon the lord "I wouldn't be here without him." Provided caring prescence and compassionate listening. Spouse is joined at bedside by pt's son. Spouse and son express emotional relief in the form of laughter and easy conversation. Offered prayer before exiting to respond to a trauma team activation. Expressed ongoing availibility for the rest of the day. Spouse thanked me for the visit.
[2025-01-18] MEDS ORDERED: NS 0 ML IV ONE (12:56)
--- NOTE | 2025-01-18 13:09 | NUR ---
PT OFF FLOOR FOR SP CATH PLACEMENT WITH DR LOCKETT
[2025-01-18] MEDS ORDERED: NS 250 ML IV ONE (13:15)
--- NOTE | 2025-01-18 14:19 | NUR ---
PT BACK FROM PERSONNEL INTERVIEWER SP CATH PLACEMENT. APPROX 1200CC DRAINED DURING PROCEDURE. SP CATH PRESENT DRAINING SEROSANGUINOUS FLUID. WILL CONTINUE TO MONITOR.
--- NOTE | 2025-01-18 14:35 | NUR ---
Carmen notified of successful catheter placement. notified of pt's apneic periods becoming longer. Carmen enroute to see pt.
--- NOTE | 2025-01-18 15:06 | NUR ---
AT BEDSIDE. HANDS/FEET COOL TO TOUCH. PT CONTINUES TO HAVE APNEIC PERIODS LASTING 20-30 SECONDS.
--- NOTE | 2025-01-18 15:31 | NUR ---
SON AT BEDSIDE
--- NOTE | 2025-01-18 15:59 | NUR ---
1558. PT . FAMILY AT BEDSIDE. PASTORAL CARE JOSE IN WITH FAMILY.
--- NOTE | 2025-01-18 16:04 | NUR ---
DR ADEN NOTIFIED OF PT'S PASSING.
--- NOTE | 2025-01-18 16:44 | NUR ---
Spiritual Care visit conducted Attending nurse asked me to re-visit family as Nasir Kahn (Pt) recently . Family is at bedside. Conducted life review. Family expresses emotional relief in the form of laughter and appears relieved by the opportunity to recount stories of the pt. Family describes pt as being spiritually connected. Family appears resolved about pt's ultimate fate and have many of the accomodations already decided. Family members say that pt wanted to use [facility], but that they'd also like to confirm with other family members. Offered prayer. Pt's family thanked me for the visit and emotional support and display signs of being more uplifted following the visit.
== END 2025-01-18 22:32 | DRG 535 ==
LOC: ER 18:31 → ERHOLD 22:30 → SURS 22:30
PROVIDERS: Emergency Medicine; ADMIT Student in an Organized Health Care Education/Training Program
PROC: 0T9B70Z Drainage of Bladder with Drainage Device, Via Natural or Artificial Opening (ICD-10-PCS; principal; 2025-01-18)
DX: S72.012A Unspecified intracapsular fracture of left femur, initial encounter for closed fracture (principal); I50.23 Acute on chronic systolic (congestive) heart failure; E87.1 Hypo-osmolality and hyponatremia; I13.0 Hypertensive heart and chronic kidney disease with heart failure and stage 1 through stage 4 chronic kidney disease, or unspecified chronic kidney disease; J84.9 Interstitial pulmonary disease, unspecified; Z51.5 Encounter for palliative care; Z66 Do not resuscitate; I35.0 Nonrheumatic aortic (valve) stenosis; E78.5 Hyperlipidemia, unspecified; G47.33 Obstructive sleep apnea (adult) (pediatric); F17.210 Nicotine dependence, cigarettes, uncomplicated; E03.9 Hypothyroidism, unspecified; E11.22 Type 2 diabetes mellitus with diabetic chronic kidney disease; F32.9 Major depressive disorder, single episode, unspecified; M85.80 Other specified disorders of bone density and structure, unspecified site; J44.9 Chronic obstructive pulmonary disease, unspecified; N18.31 Chronic kidney disease, stage 3a; I48.0 Paroxysmal atrial fibrillation; I44.1 Atrioventricular block, second degree; N40.1 Benign prostatic hyperplasia with lower urinary tract symptoms; R31.9 Hematuria, unspecified; R33.8 Other retention of urine; N13.9 Obstructive and reflux uropathy, unspecified; Z85.828 Personal history of other malignant neoplasm of skin; Z79.01 Long term (current) use of anticoagulants; Z79.899 Other long term (current) drug therapy; Z79.85 Long-term (current) use of injectable non-insulin antidiabetic drugs; Z79.890 Hormone replacement therapy; Z79.51 Long term (current) use of inhaled steroids; Z79.4 Long term (current) use of insulin; Z99.81 Dependence on supplemental oxygen; Z90.5 Acquired absence of kidney; Z98.890 Other specified postprocedural states; Z95.0 Presence of cardiac pacemaker; Z87.01 Personal history of pneumonia (recurrent); Z87.09 Personal history of other diseases of the respiratory system; W01.0XXA Fall on same level from slipping, tripping and stumbling without subsequent striking against object, initial encounter; Y92.009 Unspecified place in unspecified non-institutional (private) residence as the place of occurrence of the external cause; Z85.528 Personal history of other malignant neoplasm of kidney
CPT/HCPCS: 36415; 51102; 51700; 51701; 51703; 70450; 73502; 76937; 77002; 80048; 80053; 82947; 83735; 83880; 85025; 85610; 94640; 94664; 94762; 96374; 99285-25; A9270; C1729; C1769; J1171; J1815; J1938; J2270; J7040; J7050; Q9967